=== PATIENT | male | born 1970 | race Caucasian/White ===

== ENCOUNTER 2024-10-28 13:47 | Outpatient (OUT) | payer OTHER, SELFPAY ==
--- NOTE | 2024-10-27 16:00 | VEINCLINIC_ITS ---
Vital Signs 10/28/24 14:22 Height 6 ft 1 in Weight 81.647 kg BMI 23.7 BP 120/58 BP Location Left Brachial BP Position Sitting BP Cuff Size Adult BP Source Manual Cuff Respiration 16 Pulse 62 Pulse Source Monitor Pulse Oximetry (%) 99 Oxygen Delivery Method Room Air Comment The patient's blood pressure is elevated. Varicose Veins Patient is a 53year in this day as a referral from Dr. Jacinto, patient's PCP with c/o bilateral leg pain and edema left leg greater than right. Patient has worn bilateral leg knee high compression stockings for approximately 10 years. Patient rates pain at a 3 on a scale of 1-10. Patient has family history of varicose vein disease in paternal grandmother. Patient has no history of varicose vein treatment nor any history of DVT's Ramakrishna Anaya MD personally performed the services described in this documentation, as scribed by Markos Sharp RN in my presence and it is both accurate and complete. IMarkos RN, am scribing for, and in the presence of, Dr. Ramakrishna Damon and in the presence of the patient. . thigh: bilateral (symptoms left leg > right leg), knee: bilateral, calf: bilateral, ankle: bilateral and nuñez: bilateral aching and cramping 3 10 years Worsened in recent months: Yes standing and sitting elevating extremities, compression stockings and exercise Reports muscle spasms of leg, limb pain and leg edema History of lower extremity trauma: No Superficial thrombophlebitis: No Family history of varicose veins: yes Has patient had previous lower extremity venous surgery: No Patient has previously received the following treatment(s) for lower extremity varicose veins: Reports none Does patient have a history of : not applicable Has patient had lower extremity venous scan with relux testing: No Support hose used: Yes Problems walking or doing physical activity: Yes How does it affect you: pain interupts patient's sleep and awakens patient at night Do you walk much: Yes Do you stand much: Yes Review of Systems ROS Narrative Ramakrishna Anaya MD personally performed the services described in this documentation, as scribed by Markos Sharp RN in my presence and it is both accurate and complete. IMarkos RN, am scribing for, and in the presence of, Dr. Ramakrishna Damon and in the presence of the patient. Status of ROS 10 or more systems reviewed and unremark able except as noted in history and below Cardiovascular Reports: edema Integumentary/Breast Reports: skin pain PFSH PFSH Medical History (Updated 10/28/24 @ 14:30 by Markos Sharp) Hypercholesteremia ?E78.00 - Pure hypercholesterolemia, unspecified (ICD-10) Varicose veins of bilateral lower extremities with pain ?I83.813 - Varicose veins of bilateral lower extremities with pain (ICD-10) Surgical History (Updated 10/28/24 @ 14:30 by Markos Sharp) H/O hernia repair ?Z98.890 - Other specified postprocedural states (ICD-10) ?Z87.19 - Personal history of other diseases of the digestive system (ICD-10) Family History (Updated 10/28/24 @ 14:32 by Markos Sharp) Other Family history of COPD (chronic obstructive pulmonary disease) Pain due to varicose veins of both lower extremities Social History (Updated 10/28/24 @ 14:32 by Markos Sharp) Within the past year, how often did you have a drink containing alcohol: monthly or less Smoking status: Never smoker Non-prescribed substance use: denies use Meds Home Medications and Allergies Home Medications ?Medication ?Instructions ?Recorded ?Confirmed ?Type atorvastatin 10 mg tablet 10 mg PO DAILY 10/28/24 10/28/24 History Allergies Allergy/AdvReac Type Severity Reaction Status Date / Time No Known Drug Allergies Allergy Verified 10/28/24 14:32 Exam Narrative Exam Narrative: Ramakrishna Anaya MD personally performed the services described in this documentation, as scribed by Markos Sharp RN in my presence and it is both accurate and complete. Markos Anaya RN, am scribing for, and in the presence of, Dr. Ramakrishna Damon and in the presence of the patient. Constitutional Documenting provider has reviewed patient's vital signs: yes Common normals: oriented x3 Cardio Peripheral pulses: posterior tibial pulses present and dorsalis pedis pulses present Extremity Common normals: normal capillary refill General: calf tenderness and edema Right lower extremity: lower leg Right lower leg: inspection and palpation Left lower extremity: lower leg Left lower leg: inspection and palpation Neuro Common normals: oriented x3 Results Additional Findings Additional findings: Bilateral leg reflux u/s reveals severe bilateral leg great saphenous and moder ate bilateral leg small saphenous venous insufficiency along with bilateral leg incompetent perforforating veins, and lastly bilateral leg branch saphenous truncal tributary varicosities. Ramakrishna Anaya MD personally performed the services described in this documentation, as scribed by Markos Sharp RN in my presence and it is both accurate and complete. I, Markos Sharp RN, am scribing for, and in the presence of, Dr. Ramakrishna Damon and in the presence of the patient. Assessment and Plan Assessment and Plan (1) Varicose veins of bilateral lower extremities with pain: Plan Plan is for patient to return for EVLT of bilateral leg EVLT's left leg before right. Once EVLT's are complete, move forward with microfoam chemical ablation bilateral leg branch saphenous varicosities. Ramakrishna Anaya MD personally performed the services described in this documentation, as scribed by Markos Sharp RN in my presence and it is both accurate and complete. IMarkos RN, am scribing for, and in the presence of, Dr. Ramakrishna Damon and in the presence of the patient.
--- NOTE | 2024-10-27 16:02 | P.DS_ITS ---
Discharge Plan Discharge Disposition: Home, Self-Care Outpatient Diagnostics: VC Endovenous Ablation 1VeinLT (Routine) Timeframe: 2 Weeks Facility: [facility] - Location: Vein Center Ordered By: Ramakrishna Damon Plan of Treatment: EVLT of left GSV Patient Instructions: Endovenous Ablation (GEN) Print Language: Yakut Discharge Date/Time: 10/28/24 15:58
--- NOTE | 2024-10-28 13:52 | VEIN_ITS ---
Patient Name: AFSHAN AZAR MR#: [id number] : 1970 Exam Date: 10/28/2024 Ordering Doctor: DR RAMAKRISHNA DAMON M.D. RADIOLOGY REPORT PROCEDURE: VC EXT VENOUS REFLUX JONO LMTD COMPARISON: None. INDICATIONS: I83.813 TECHNIQUE: Duplex imaging of the lower extremity to assess the deep and superficial venous system for the presence of deep or superficial venous incompetence and to document the location and severity of disease. The study includes evaluation of the great saphenous vein (GSV), anterior accessory saphenous vein (AASV) and small saphenous vein (SSV). Patient scanned in reverse Trendelenburg and standing. FINDINGS: RIGHT LOWER EXTREMITY: Saphenofemoral Junction Reflux: Yes 7.7mm 3.8 sec GSV: Diam (mm) Reflux/ Time (sec) Proximal Thigh 5.6 Yes 3.3 Mid Thigh 4.3 No Distal Thigh 3.3 No Prox Calf 3.1 Yes 0.8 Mid Calf 2.9 Yes 0.5 Saphenopopliteal Junction Reflux: 5.7mm Yes 0.6 SSV: Proximal Calf 3.9 Yes 0.5 Mid Calf 3.1 No AASV: Not present Thrombi: No acute or chronic thrombus visualized Compressibility: Normal Flow: Normal Preforator: Dist/med calf 3.6mm with 0.6s reflux. Tech Note: Incompetent GSV. GSV is extrafacial from distal thigh to prox calf. Patent varicose vein prox/med calf 4.0mm with 0.7s reflux. Patent varicose vein mid/med thigh 2.8mm with 0.7s reflux. LEFT LOWER EXTREMITY: Saphenofemoral Junction Reflux: Yes 10.8 mm 3.9 sec GSV: Diam (mm) Reflux/Time (sec) Proximal Thigh 8.1 Yes 3.2 Mid Thigh 6.6 Yes 3.7 Distal Thigh 2.4 Yes 2.0 Prox Calf 2.8 Yes 3.8 Mid Calf 2.4 No Saphenopopliteal Junction Relux: 1.9 mm Yes 0.9 SSV: Proximal Calf 1.5 No Mid Calf 1.5 Yes 1.0 AASV: Proximal Thigh 3.1 No Mid Thigh 3.6 No Distal Thigh Thrombi: No acute or chronic thrombus visualized Compressibility: Normal Flow: Normal Undertaker Assistant: Dist/med calf 3.3mm with 1.1s reflux. Mid/med calf 4.6mm with 1.0s reflux. Tech Note: Incompetent GSV. Patent varicose vein off of GSV at prox/med calf 10.8mm with 3.3s reflux. Patent varicose vein off of GSV at mid/med thigh 8.1mm with 2.4s reflux. CONCLUSION: 1. Severe bilateral great saphenous vein venous insufficiency with dilatation and saphenofemoral junction reflux 2. Mild right small saphenous vein reflux with borderline dilatation 3. Bilateral incompetent perforating 4. Bilateral incompetent varicose veins Dictated by: Ramakrishna Damon MD on 10/28/2024 at 15:04 Approved by: Ramakrishna Damon MD on 10/28/2024 at 15:06
--- NOTE | 2024-10-28 13:52 | VEIN_ITS ---
Patient Name: AFSHAN AZAR MR#: [id number] : 1970 Exam Date: 10/28/2024 Ordering Doctor: DR RAMAKRISHNA DAMON M.D. RADIOLOGY REPORT PROCEDURE: [facility] - OFFICE VISIT INITIAL COMPARISON: None. PROGRESS NOTES: 53-year-old male who is referred by Dr. Jimmy Jacinto. The patient presents with a 10 year history of lower extremity pain swelling and varicose veins, significantly increased in the past several years. The patient rates the pain as a 3 on a scale of 1-10 describing the pain as a dull ache. 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 The patient's symptoms are partially relieved by rest, leg elevation and for compression stockings which she has worn for approximately 10 years. The patient denies any signs and symptoms to suggest arterial ischemia. The patient describes a family history significant for varicose veins, COPD. The patient drinks alcohol monthly or less. The patient has never smoked. No substance abuse. No history of deep venous thrombus or pulmonary embolus. Past medical history significant for hypercholesterolemia varicose veins. Past surgical history significant for hernia repair. The patient is on atorvastatin. See separate history and physical for medication list. No prior treatment for varicose or spider veins. Nursing notes were reviewed. After history and physical exam I discussed at length the pathophysiology of venous hypertension and possible treatments, therapies and strategies available. We discussed at length the importance of elevating the lower extremities above the level of the heart, increased physical activity and compression stocking use. We discussed alternatives including conservative treatment with compression stockings. We discussed surgical interventions of ligation stripping and phlebectomy. We discussed intravenous laser ablation, micro foam chemical ablation and injection sclerotherapy at length. Risks benefits alternatives were discussed. The patient's questions were answered Ultrasound venous reflux study performed the same day was discussed at length with the patient. The report demonstrates severe bilateral great saphenous vein venous insufficiency. Mild right small saphenous vein venous insufficiency. Bilateral incompetent perforating veins her bilateral incompetent varicose veins. PHYSICAL EXAM: The right leg demonstrates a few scattered varicose veins. No subcutaneous edema, skin discoloration or active ulceration The left leg demonstrates multiple large varicose veins. Mild subcutaneous edema below the knee. No skin discoloration or active ulceration Both thighs, legs and feet were symmetrically warm to the touch. Good posterior tibial and dorsalis pedis pulses were present bilaterally. VEIN/VC Facility EST Comprehensive IMPRESSION: 1. Severe bilateral great saphenous vein venous insufficiency with dilatation and saphenofemoral junction reflux 2. Bilateral incompetent lower extremity varicose veins, left greater than right 3. Mild left lower extremity subcutaneous edema 4. No definite flow significant arterial disease 5. CEAP: C3, Ep, Asp, Pr PLAN: 1. Endovenous laser ablation of the left great saphenous vein followed by the right great saphenous vein 2. Micro foam chemical ablation incompetent varicose veins 3. Long-term use of bilateral near thigh-high 20-30 mm compression stockings 4. Continued physical activity for symptomatic relief Nurse notes, history and physical were reviewed and confirmed, see attached forms. The nurse was present throughout the physical exam and consultation Dictated by: Ramakrishna Damon MD on 10/28/2024 at 15:23 Approved by: Ramakrishna Damon MD on 10/28/2024 at 15:36
[2024-10-28 14:22] VITALS: BP 120/58; PULSE 62; O2SAT 99; BMI 23.7
== END 2024-10-28 15:58 | disposition home or self-care (01) ==
LOC: VC 13:47
PROVIDERS: PCP Internal Medicine; Visit Provider Radiology Diagnostic Radiology
DX: I83.813 Varicose veins of bilateral lower extremities with pain (principal)
CPT/HCPCS: 93970; G0463

== ENCOUNTER 2024-12-07 13:50 | Outpatient (OUT) | payer OTHER, SELFPAY ==
--- NOTE | 2024-12-06 09:51 | V.VEINS.HP ---
Vital Signs 12/07/24 14:03 BP 108/54 BP Location Left Brachial BP Position Sitting BP Cuff Size Large Adult BP Source Manual Cuff Respiration 16 Pulse 79 Pulse Source Monitor Pulse Oximetry (%) 98 Oxygen Delivery Method Room Air Varicose Veins Patient in this day for EVLT of left GSV Jose Anaya MD personally performed the services described in this documentation, as scribed by Markos Sharp RN in my presence and it is both accurate and complete. Markos Anaya RN, am scribing for, and in the presence of, Dr. Jose Amaro and in the presence of the patient. . thigh: bilateral (symptoms left leg > right leg), knee: bilateral, calf: bilateral, ankle: bilateral and nuñez: bilateral aching and cramping 3 10 years Worsened in recent months: Yes standing and sitting elevating extremities, compression stockings and exercise Reports muscle spasms of leg, limb pain and leg edema History of lower extremity trauma: No Superficial thrombophlebitis: No Family history of varicose veins: yes Has patient had previous lower extremity venous surgery: No Patient has previously received the following treatment(s) for lower extremity varicose veins: Reports none Does patient have a history of : not applicable Has patient had lower extremity venous scan with relux testing: No Support hose used: Yes Problems walking or doing physical activity: Yes How does it affect you: pain interupts patient's sleep and awakens patient at night Do you walk much: Yes Do you stand much: Yes Review of Systems ROS Narrative Jose Anaya MD personally performed the services described in this documentation, as scribed by Markos Sharp RN in my presence and it is both accurate and complete. Markos Anaya RN, am scribing for, and in the presence of, Dr. Jose Amaro and in the presence of the patient. Status of ROS 10 or more systems reviewed and unremarkable except as noted in history and below Cardiovascular Reports: edema Integumentary/Breast Reports: skin pain PFSH [facility] Medical History (Updated 12/06/24 @ 10:04 by Markos Sharp) Superficial thrombophlebitis of left leg ?I80.02 - Phlebitis and thrombophlebitis of superficial vessels of left lower extremity (ICD-10) Hypercholesteremia ?E78.00 - Pure hypercholesterolemia, unspecified (ICD-10) Varicose veins of bilateral lower extremities with pain ?I83.813 - Varicose veins of bilateral lower extremities with pain (ICD-10) Surgical History (Updated 12/07/24 @ 14:24 by Markos Sharp) Status post laser ablation of incompetent vein ?Z98.890 - Other specified postprocedural states (ICD-10) H/O hernia repair ?Z98.890 - Other specified postprocedural states (ICD-10) ?Z87.19 - Personal history of other diseases of the digestive system (ICD-10) Family History (Updated 10/28/24 @ 14:32 by Markos Sharp) Other Family history of COPD (chronic obstructive pulmonary disease) Pain due to varicose veins of both lower extremities Social History (Updated 10/28/24 @ 14:32 by Markos Sharp) Within the past year, how often did you have a drink containing alcohol: monthly or less Smoking status: Never smoker Non-prescribed substance use: denies use Meds Home Medications and Allergies Home Medications ?Medication ?Instructions ?Recorded ?Confirmed ?Type atorvastatin 10 mg tablet 10 mg PO DAILY 10/28/24 10/28/24 History Allergies Allergy/AdvReac Type Severity Reaction Status Date / Time No Known Drug Allergies Allergy Verified 10/28/24 14:32 Exam Narrative Exam Narrative: Jose Anaya MD personally performed the services described in this documentation, as scribed by Markos Sharp RN in my presence and it is both accurate and complete. Markos Anaya RN, am scribing for, and in the presence of, Dr. Jose Amaro and in the presence of the patient. Constitutional Documenting provider has reviewed patient's vital signs: yes Common normals: oriented x3 Cardio Peripheral pulses: posterior tibial pulses present and dorsalis pedis pulses present Extremity Common normals: normal capillary refill General: calf tenderness and edema Right lower extremity: lower leg Right lower leg: inspection and palpation Left lower extremity: lower leg Left lower leg: inspection and palpation Neuro Common normals: oriented x3 Assessment and Plan Assessment and Plan (1) Varicose veins of bilateral lower extremities with pain: Plan f/u evaluation with physician along with left leg limited u/s Jose Anaya MD personally performed the services described in this documentation, as scribed by Markos Sharp RN in my presence and it is both accurate and complete. I, Markos Sharp RN, am scribing for, and in the presence of, Dr. Jose Amaro and in the presence of the patient. Procedures Procedure Instructions Procedures Plan of care: Risks and benefits of the procedure were discussed at length and informed written consent was obtained.? Time-out completed for verification of correct patient, procedure and site.? Staff present during time-out: Markos Sharp RN,? Jose Amaro MD, [facility],[place]. Time Out Time_1430 Patient prepped and procedure performed in usual sterile fashion. Risk of injury related to use of Diode laser and/or laser devices__CR___ ? Serial number of laser used :? [id number] Control panel self test performed, electrical cords in good condition, floor is dry, basin of water available, fire extinguisher in close proximity_CR__ Polycarbonate goggles available and Laser warning signs outside of doors___CR__ Eye protection provided to patient and staff in room_CR___ Use of laser retardant drapes and dull blackened instruments as directed__CR___ Use of nonflammable prep solutions and use of saline soaked sponges to protect tissues as indicated _CR___ Length __32 cm Laser operated by __Dr. Damon Physician verbal confirmation laser locked in place__CR__ Laser start time (date and time) _12/06/2024@_1445 Laser stop time(date and time) __12/06/2024@_1449 Ramos _8.0___ Average laser use __1697 Joules Average laser use__212 seconds Pulse continuous ___CR_? Pulse intermittent ___ Amount of Tumescent used _175cc Evaluated patient for signs and symptoms of electrical injury __CR___ ? Skin clear at insertion site __CR___ Patient tolerated procedure well.? Left leg Coban dressing applied to access site.? Applied Left thigh high leg compression stocking. Will return on 12/14/2024 for Left leg limited venous ultrasound and exam. IRamakrishna MD personally performed the services described in this documentation, as scribed by Markos Sharp RN in my presence and it is both accurate and complete. I, Markos Sharp RN, am scribing for, and in the presence of, Dr. Ramakrishna Damon and in the presence of the patient.
--- NOTE | 2024-12-06 10:02 | P.DS_ITS ---
Discharge Plan Discharge Disposition: Home, Self-Care Outpatient Diagnostics: VC Facility EST LMTD (Routine) Timeframe: 2 Weeks Facility: [facility] - Location: Vein Center Ordered By: Ramakrishna Damon VC EXT Venous LT Limited (Routine) Timeframe: 2 Weeks Facility: [facility] - Location: Vein Center Ordered By: Ramakrishna Damon Follow Up Appointments: 12/14/2024 Plan of Treatment: f/u evaluation with physician along with left leg limited u/s Patient Instructions: Endovenous Ablation (DC) Print Language: Persian Discharge Date/Time: 12/07/24 14:24
--- NOTE | 2024-12-07 13:53 | VEIN_ITS ---
[address] [address] Patient Name: AFSHAN AZAR MRN: [id number] date: 1970 Sex: M Assigned Patient Location: Current Patient Location: Accession/Order Number: [id number] Exam Date: 12/07/2024 14:00 Report Date: 12/07/2024 14:55 At the request of: KINSEY JJ Procedure: VC Endovenous Ablation 1VeinLT EXAMINATION: VC Endovenous Ablation 1VeinLT HISTORY: I83.813 - Varicose veins of bilateral lower extremities w... The risks and benefits of the procedure had been previously discussed, and were rediscussed at length. Informed written consent was obtained. Markos Sharp RN and Carmela Saavedra RDMS, RVT assisted. Time out procedure was performed. The left lower extremity was prepared and draped in the usual sterile fashion to allow knee flexion in the sterile field. Duplex ultrasound probe was draped in a sterile cover, sterile transmission gel was used. Venous mapping was performed with the areas of dilation and large tributaries marked. The total length was 32 cm from the entry distal thigh to 3 cm below the Saphenofemoral junction. The diameter of the left great saphenous vein ranged from 8.1 mm. A 30 gauge needle and 1% buffered lidocaine was used to anesthetize the entry site. A 4 mm incision was made with a scalpel and the saphenous vein was entered percutaneously under direct ultrasound guidance with a micropuncture set, a single stick was successful in gaining access. A micro-guide wire was inserted and the needle removed. A micro-set including a dilator was inserted over the microwire and the needle and dilator were removed. A guide wire was inserted through the micro-set and guided through the saphenous vein to the saphenofemoral junction. The dilator was removed and an introducer sheath was inserted over the wire until the end of the sheath entered the saphenofemoral junction. The dilator and wire were removed and the 600 micron fiber was introduced and placed and positioned so that it extended beyond the sheath and was 3 cm distal to the saphenofemoral or saphenopopliteal junction. Final position of the fiber was determined by ultrasound guidance and duplex imaging. Tumescent anesthetic was delivered by ultrasound guidance. 175 cc of fluid was delivered along the entire course of the saphenous vein. The solution consisted of 1000 cc of normal saline with 40 mL of 1% lidocaine and 20 mL of sodium bicarbonate. A final positioning check was made. The energy source was turned on by means of the foot pedal and the fiber and sheath were withdrawn. The total number of Joules delivered was 1697. The laser was active for 212 seconds under continuous pulse, average laser use of 8 J. Laser start time: 2:45 PM Laser stop time: 2:49 PM Date: 12/07/2024. A duplex ultrasound revealed compressibility and flow at the saphenofemoral junction immediately after the procedure. Hemostasis at the access site was achieved. The skin incision of the saphenous vein was closed with a 4 x 4. A compression stocking was applied. Postop instructions were given. A follow up appointment was recommended and scheduled. The patient tolerated the procedure well. Electronically authenticated by: SAMANTHA LECHUGA Date: 12/07/2024 14:55
[2024-12-07 14:03] VITALS: BP 108/54; PULSE 79; O2SAT 98
[2024-12-07] MEDS: 0.9 % SODIUM CHLORIDE 500 ML, LIDOCAINE HCL 20 ML, SODIUM BICARBONATE 10 MEQ INJ (14:20)
[2024-12-07] MEDS: LIDOCAINE HCL 1% 100 MG/10 ML MDV INJ (14:20)
== END 2024-12-07 14:24 | disposition home or self-care (01) ==
LOC: VC 13:50
PROVIDERS: PCP Radiology Diagnostic Radiology; Visit Provider Radiology Diagnostic Radiology
DX: I83.813 Varicose veins of bilateral lower extremities with pain (principal)
CPT/HCPCS: 36478

== ENCOUNTER 2024-12-14 14:58 | Outpatient (OUT) | payer OTHER, SELFPAY ==
--- NOTE | 2024-12-13 14:40 | V.VEINS.HP ---
Varicose Veins Patient in this day for follow up ultrasound post EVLT of left GSV Ramakrishna Anaya MD personally performed the services described in this documentation, as scribed by Carmela Saavedra RVT, RDMS in my presence and it is both accurate and complete. Carmela Anaya RVT, RDMS, am scribing for, and in the presence of, Dr. Ramakrishna Damon and in the presence of the patient. . thigh: bilateral (symptoms left leg > right leg), knee: bilateral, calf: bilateral, ankle: bilateral and nuñez: bilateral aching and cramping 3 10 years Worsened in recent months: Yes standing and sitting elevating extremities, compression stockings and exercise Reports muscle spasms of leg, limb pain and leg edema History of lower extremity trauma: No Superficial thrombophlebitis: No Family history of varicose veins: yes Has patient had previous lower extremity venous surgery: No Patient has previously received the following treatment(s) for lower extremity varicose veins: Reports none Does patient have a history of : not applicable Has patient had lower extremity venous scan with relux testing: No Support hose used: Yes Problems walking or doing physical activity: Yes How does it affect you: pain interupts patient's sleep and awakens patient at night Do you walk much: Yes Do you stand much: Yes Review of Systems ROS Narrative Ramakrishna Anaya MD personally performed the services described in this documentation, as scribed by Carmela Saavedra RVT, RDMS in my presence and it is both accurate and complete. ICarmela RVT, RDMS, am scribing for, and in the presence of, Dr. Ramakrishna Damon and in the presence of the patient. Status of ROS 10 or more systems reviewed and unremarkable except as noted in history and below Cardiovascular Reports: edema Integumentary/Breast Reports: skin pain [facility] Medical History (Updated 12/06/24 @ 10:04 by Markos Sharp) Superficial thrombophlebitis of left leg ?I80.02 - Phlebitis and thrombophlebitis of superficial vessels of left lower extremity (ICD-10) Hypercholesteremia ?E78.00 - Pure hypercholesterolemia, unspecified (ICD-10) Varicose veins of bilateral lower extremities with pain ?I83.813 - Varicose veins of bilateral lower extremities with pain (ICD-10) Surgical History (Updated 12/07/24 @ 14:24 by Markos Sharp) Status post laser ablation of incompetent vein ?Z98.890 - Other specified postprocedural states (ICD-10) H/O hernia repair ?Z98.890 - Other specified postprocedural states (ICD-10) ?Z87.19 - Personal history of other diseases of the digestive system (ICD-10) Family History (Updated 10/28/24 @ 14:32 by Markos Sharp) Other Family history of COPD (chronic obstructive pulmonary disease) Pain due to varicose veins of both lower extremities Social History (Updated 10/28/24 @ 14:32 by Markos Sharp) Within the past year, how often did you have a drink containing alcohol: monthly or less Smoking status: Never smoker Non-prescribed substance use: denies use Meds Home Medications and Allergies Home Medications ?Medication ?Instructions ?Recorded ?Confirmed ?Type atorvastatin 10 mg tablet 10 mg PO DAILY 10/28/24 10/28/24 History Allergies Allergy/AdvReac Type Severity Reaction Status Date / Time No Known Drug Allergies Allergy Verified 10/28/24 14:32 Exam Narrative Exam Narrative: Ramakrishna Anaya MD personally performed the services described in this documentation, as scribed by Carmela Saavedra RVT, RDMS in my presence and it is both accurate and complete. Carmela Anaya RVT, RDMS, am scribing for, and in the presence of, Dr. Ramakrishna Damon and in the presence of the patient. Constitutional Documenting provider has reviewed patient's vital signs: yes Common normals: oriented x3 Cardio Peripheral pulses: posterior tibial pulses present and dorsalis pedis pulses present Extremity Common normals: normal capillary refill General: calf tenderness and edema Right lower extremity: lower leg Right lower leg: inspection and palpation Left lower extremity: lower leg Left lower leg: inspection and palpation Neuro Common normals: oriented x3 Results Imaging Venous US: Radiologist's impression: The ultrasound demonstrates Heat induced thrombus visualized 1.8cm from the SFJ. The heat induced thrombus extends from groin to distal thigh. Assessment and Plan Assessment and Plan (1) Superficial thrombophlebitis of left leg: Plan Patient in today for follow up ultrasound of lower extremity following treatment of EVLT of left leg GSV completed on 12/07/24. Ramakrishna Anaya MD personally performed the services described in this documentation, as scribed by Carmela Saavedra RVT, RDMS in my presence and it is both accurate and complete. I, Carmela Saavedra RVT, RDMS, am scribing for, and in the presence of, Dr. Ramakrishna Damon and in the presence of the patient.
--- NOTE | 2024-12-13 14:42 | P.DS_ITS ---
Discharge Plan Discharge Disposition: Home, Self-Care Outpatient Diagnostics: VC Endovenous Ablation 1VeinRT (Routine) Timeframe: 2 Weeks Facility: [facility] - Location: [facility] Ordered By: Ramakrishna Damon Follow Up Appointments: Patient wants and plans to continue to get treatment. Plan of Treatment: EVLT of right leg GSV Print Language: Italian Discharge Date/Time: 12/14/24 15:21
--- NOTE | 2024-12-14 15:03 | VEIN_ITS ---
Patient Name: AFSHAN AZAR MR#: [id number] : 1970 Exam Date: 12/14/2024 Ordering Doctor: DR RAMAKRISHNA DAMON M.D. RADIOLOGY REPORT PROCEDURE: VC EXT VENOUS LT LIMITED COMPARISON: None. INDICATIONS: I80.02 - Phlebitis and thrombophlebitis of superficial ve... TECHNIQUE: Lower extremity hubbard scale and Duplex Doppler evaluation of the deep venous system from the inguinal ligament through the calf veins. FINDINGS: REGION: Left lower extremity. THROMBI: Negative for DVT. Heat induced thrombus visualized 1.8cm from the SFJ. The heat induced thrombus extends from groin to distal thigh. COMPRESSIBILITY: Non-compressible segments corresponding to thrombus FLOW: Areas of no flow corresponding to thrombus CONCLUSION: Post ablation occlusion of the left great saphenous vein with heat induced thrombus 1.8 cm from the saphenofemoral junction Dictated by: Ramakrishna Damon MD on 12/14/2024 at 15:19 Approved by: Ramakrishna Damon MD on 12/14/2024 at 15:21
--- NOTE | 2024-12-14 15:03 | VEIN_ITS ---
Patient Name: AFSHAN AZAR MR#: [id number] : 1970 Exam Date: 12/14/2024 Ordering Doctor: DR RAMAKRISHNA DAMON M.D. RADIOLOGY REPORT PROCEDURE: VC FACILITY EST [facility] - OFFICE VISIT FOLLOW UP COMPARISON: None. PROGRESS NOTES: The patient reports no significant problems following intravenous laser ablation of the left great saphenous vein. The patient did wear his compression stockings. The patient did not oral analgesics. Physical exam demonstrates minimal bruising along the medial distal thigh. The incision is healed. No erythema or warmth to suggest cellulitis or thrombophlebitis. The thrombosed left great saphenous vein can be palpated. Review of the ultrasound performed the same day demonstrates occlusive thrombus extending throughout the treated left great saphenous vein with heat induced thrombus 1.8 cm from the saphenofemoral junction. The patient expressed a desire to proceed with treatment of incompetent right great saphenous vein. VEIN/VC Facility EST LMTD IMPRESSION: 1. Successful ablation of the left great saphenous vein 2. Persistent incompetent right great saphenous vein. PLAN: Intravenous laser ablation right great saphenous vein Nurse notes, history and physical were reviewed and confirmed, see attached forms. The nurse was present throughout the physical exam and consultation Dictated by: Ramakrishna Damon MD on 12/14/2024 at 15:34 Approved by: Ramakrishna Damon MD on 12/14/2024 at 15:38
--- OUTSIDE RECORDS SUMMARY | 2024-12-14 15:22 | XMS_ITS | CCD ---
Author Organization [facility] CliniSyor Care Team Providers Care Operations Management Professionals Name Role Phone DR JIMMY DAVIES Attending Unavailable SAMSON, DR MANDEL Consulting Unavailable SAMSON, DR MANDEL Admitting Unavailable Jimmy Davies Unavailable Asashannon, Imshannon Unavailable MD Samantha Maciel Attending Provider [phone] DO Jimmy Davies Primary Care Provider Jimmy Davies Primary Care Unavailable AsaadSamantha Attending Unavailable Asaad Imshannon Admitting Unavailable Allergies Allergy Classification Reported Allergen(s) Allergy Type Date of Onset Reaction(s) Facility (1 source) patient allergy list reviewed by nurse or physicia Propensity to adverse reactions 4 Comment:[employer] Other Medications Current Medications Medication Drug Class(es) Dates Sig (Normalized) Sig (Original) [id number] 200 actuat albuterol 0.09 mg/actuat metered dose inhaler (6 sources) beta2-Adrenergic Agonist Start: 12-25-2020 take 2 puff(s) by inhalation every four hours as needed Albuterol Sulfate HFA 108 (90 Base) MCG/ACT 2 puffs as needed Inhalation every 4 hrs for 30 days Dec, Active Start: 12-25-2020 take 2 puff(s) by in halation every four hours as needed Albuterol Sulfate HFA 108 (90 Base) MCG/ACT 2 puffs as needed Inhalation every 4 hrs for 30 days Dec, Not-Taking atorvastatin 40 mg oral tablet (3 sources) HMG-CoA Reductase Inhibitor Start: 09-02-2024 End: 09-02-2024 take 1 tablet by mouth once daily Atorvastatin 40 mg tablet Active 40 MG PO Daily 90 90 September 02, 2024 2:16pm Start: 08-26-2023 take 1 tablet by shakira th every twenty-four hours Atorvastatin Calcium 40 MG 1 tablet Orally Once a day for 30 days Aug, Active meloxicam 15 mg oral tablet (6 sources) Nonsteroidal Anti-inflammatory Drug Start: 03-13-2023 take 1 tablet by mouth once daily Meloxicam 15 MG 1 tablet Orally Once a day w/ food Feb, Active Completed/Discontinued Medications Medication Drug Class(es) Dates Sig (Normalized) Sig (Original) methylPREDNISolone 4 mg oral tablet (6 sources) Corticosteroid Start: 12-25-2020 Medrol 4 MG as directed Orally for 6 days Dec, Not-Taking polyethylene glycol 3350 [id number] mg / potassium chloride 2970 mg / sodium bicarbonate 6740 mg / sodium chloride 5860 mg / sodium sulfate 01762 mg powder for oral solution (3 sources) Osmotic Laxative Start: 06-03-2023 take 236 g by mouth once daily Golytely 236 GM as directed Orally once daily for 1 days May, Not-Taking predniSONE 20 mg oral tablet (5 sources) Start: 05-07-2023 take 1 tablet by mouth twice daily predniSONE 20 MG 1 tablet Orally twice daily w/ food for 5 days Hold Meloxicam while taking Prednisone Apr, Not-Taking Problems Active Problems Problem Classification Problem Date Documented Date Episodic/Chronic Disorders of lipid metabolism (11 sources) Hypercholesterolemia; Translations: [Pure hypercholesterolemia, unspecified] Chronic Joint disorders and dislocations; trauma-related (2 sources) Patellofemoral stress syndrome; Translations: [Patellofemoral disorders, right knee] Chronic Other nutritional; endocrine; and metabolic disorders (2 sources) Overweight; Translations: [Overweight] Episodic Other screening for suspected conditions (not mental disorders or infectious disease) (4 sources) Encounter for screening for malignant neoplasm of colon; Translations: [Encounter for screening for malignant neoplasm of prostate] Episodic Comment on above: PSA: 1. - 06/2024 Otitis media and related conditions (2 sources) Unspecified Eustachian tube disorder, bilateral Episodic Sprains and strains (3 sources) Strain of unspecified muscle(s) and tendon(s) at lower leg level, right leg, initial encounter; Translations: [Strain of unspecified muscle(s) and tendon(s) at lower leg level, right leg, subsequent encounter] Episodic Unclassified (1 source) Encounter for screening for malignant neoplasm of colon; Translations: [Encounter for screening for malignant neoplasm of colon] Onset: 06-30-2023 Varicose veins of lower extremity (6 sources) Pain co-occurrent and due to varicose veins of left leg; Translations: [Varicose veins of left lower extremity with pain] Episodic Past or Other Problems Problem Classification Problem Date Documented Da te Episodic/Chronic Other connective tissue disease (2 sources) Pain in right foot; Translations: [Pain in right foot] Onset: 04-01-2014 Resolved: 10-29-2021 Episodic Results Test Name Value Interpretation Reference Range [facility] CBC AUTO DIFFon 07-04-2022 BASO # 0.0 103/ul Normal 0.0-0.1 [facility] Comment on above: Performed By: #### H FPFCBC #### [facility] [address] [place] [address] Dr. Macho Harrell Basophils/100 WBC (Bld) 0.7 % Normal 0.2-2.0 [facility] Comment on above: Performed By: #### H FPFCBC #### [facility] [address] [address] [address] Macho Harrell EO # 0.1 103/ul Normal 0.0-0.7 [facility] Comment on above: Performed By: #### H FPFCBC #### [facility] [address] [place] [address] Dr. Macho Harrell Eosinophils/100 WBC (Bld) 1.9 % Normal 0.9-7.0 [facility] Comment on above: Performed By: #### H FPFCBC #### [facility] [address] [address] [address] Macho Harrell Erythrocyte distribution width (RBC) [Ratio] 11.7 % Normal 11.0-15.0 [facility] Comment on above: Performed By: #### H FPFCBC #### [facility] [address] [place] [address] Dr. Macho Harrell Hematocrit (Bld) [Volume fraction] 46.1 % Normal 42.0-54.0 [facility] Comment on above: Performed By: #### H FPFCBC #### [facility] [address] [address] [address] Macho Harrell Hemoglobin (Bld) [Mass/Vol] 15.6 g/dL Normal 14.0-18.0 [facility] Comment on above: Performed By: #### H FPFCBC #### [facility] [address] [address] [address] Macho Harrell IG # 0.01 10e3/ul Normal 0.00-0.03 [facility] Comment on above: Performed By: #### H FPFCBC #### [facility] [address] [address] [address] Macho Harrell IG % 0.2 % Normal 0.0-0.5 [facility] Comment on above: Performed By: #### H FPFCBC #### [facility] [address] [place] [address] Dr. Macho Harrell LYMPH # 1.5 103/ul Normal 1.2-3.8 [facility] Comment on above: Performed By: #### H FPFCBC #### [facility] [address] [place] [address] Dr. Macho Harrell Lymphocytes/100 WBC (Bld) 33.7 % Normal 20.5-60.0 [facility] Comment on above: Performed By: #### H FPFCBC #### [facility] [address] [place] [address] Dr. Macho Harrell MCH (RBC) [Entitic mass] 29.8 pg Normal 25.9-34.0 [facility] Comment on above: Performed By: #### H FPFCBC #### [facility] [address] [place] [address] Dr. Macho Harrell MCHC (RBC) [Mass/Vol] 33.8 g/dL Normal 29.9-35.2 [facility] Comment on above: Performed By: #### H FPFCBC #### [facility] [address] [place] [address] Dr. Macho Harrell MCV (RBC) [Entitic vol] 88.1 fL Normal 80.0-94.0 [facility] Comment on above: Performed By: #### H FPFCBC #### [facility] [address] [address] [address] Macho Harrell MONO # 0.4 103/ul Normal 0.3-0.8 [facility] Comment on above: Performed By: #### H FPFCBC #### [facility] [address] [place] [address] Dr. Macho Harrell Monocytes/100 WBC (Bld) 8.1 % Normal 1.7-12.0 [facility] Comment on above: Performed By: #### H FPFCBC #### [facility] [address] [place] [address] Dr. Macho Harrell NEUT # 2.4 103/ul Normal 1.4-6.5 [facility] Comment on above: Performed By: #### H FPFCBC #### [facility] [address] [place] [address] Dr. Macho Harrell Neutrophils/100 WBC (Bld) 55.4 % Normal 43.0-75.0 [facility] Comment on above: Performed By: #### H FPFCBC #### [facility] [address] [place] [address] Dr. Macho Harrell Platelet mean volume (Bld) [Entitic vol] 12.0 fL Normal 9.5-13.5 [facility] Comment on above: Performed By: #### H FPFCBC #### [facility] [address] [place] [address] Dr. Macho Harrell PLT 169 103/ul Normal 150-450 [facility] Comment on above: Performed By: #### H FPFCBC #### [facility] [address] [place] [address] Dr. Macho Harrell RBC 5.23 106/ul Normal 4.70-6.10 [facility] Comment on above: Performed By: #### H FPFCBC #### [facility] [address] [place] [address] Dr. Macho Harrell WBC 4.3 103/ul Normal 4.0-11.0 [facility] Comment on above: Performed By: #### H FPFCBC #### [facility] [address] [address] [address] Macho Harrell [employer] PROFILE (MALE)on 07-04-2022 Albumin [Mass/Vol] 3.8 g/dL Normal 3.4-5.0 [facility] Comment on above: Performed By: #### H FPFM #### [facility] [address] [address] [address] Macho Harrell Albumin/Globulin [Mass ratio] 1.2 {ratio} Normal [facility] Comment on above: Performed By: #### H FPFM #### [facility] [address] [place] [address] Dr. Macho Harrell ALP [Catalytic activity/Vol] 91 U/L Normal 46-116 [facility] Comment on above: Performed By: #### H FPFM #### [facility] [address] [place] [address] Dr. Macho Harrell ALT [Catalytic activity/Vol] 23 U/L Normal 16-63 [facility] Comment on above: Performed By: #### H FPFM #### [facility] [address] [place] [address] Dr. Macho Harrell AST [Catalytic activity/Vol] 19 U/L Normal 15-37 [facility] Comment on above: Performed By: #### H FPFM #### [facility] [address] [place] [address] Dr. Macho Harrell Bilirubin [Mass/Vol] 0.6 mg/dL Normal 0.2-1.0 [facility] Comment on above: Performed By: #### H FPFM #### [facility] [address] [place] [address] Dr. Macho Harrell Calcium [Mass/Vol] 8.6 mg/dL Normal 8.5-10.1 [facility] Comment on above: Performed By: #### H FPFM #### [facility] [address] [place] [address] Dr. Macho Harrell Chloride [Moles/Vol] 103 mmol/L Normal 98-107 [facility] Comment on above: Performed By: #### H FPFM #### [facility] [address] [address] [address] Macho Harrell CHOL-HDL RATIO NORM SEE BELOW Normal [facility] Comment on above: Result Comment: 3.3 - 4.4 LOW RISK 4.4 - 7.1 AVERAGE RISK 7.1 - 11.0 MODERATE RISK >11.0 HIGH RISK Performed By: #### H FPFM #### [facility] [address] [address] [address] Macho Harrell Cholesterol [Mass/Vol] 246 mg/dL Critically high <=200 [facility] Comment on above: Performed By: #### H FPFM #### [facility] [address] [address] [address] Macho Harrell Cholesterol in HDL [Mass/Vol] 62 mg/dL Critically high 40-60 [facility] Comment on above: Performed By: #### H FPFM #### [facility] [address] [address] [address] Macho Harrell Cholesterol in LDL [Mass/Vol] 165.8 mg/dL Normal [facility] Comment on above: Performed By: #### H FPFM #### [facility] [address] [address] [address] Macho Harrell Cholesterol.total/C holesterol in HDL [Mass ratio] 4.0 {ratio} Normal [facility] Comment on above: Performed By: #### H FPFM #### [facility] [address] [address] [address] Macho Harrell CO2 [Moles/Vol] 30.5 mmol/L Normal 21.0-32.0 [facility] Comment on above: Performed By: #### H FPFM #### [facility] [address] [address] [address] Macho Harrell Creatinine [Mass/Vol] 0.95 mg/dL Normal 0.70-1.30 [facility] Comment on above: Performed By: #### H FPFM #### [facility] [address] [address] [address] Macho Harrell Globulin (S) [Mass/Vol] 3.2 g/dL Normal [facility] Comment on above: Performed By: #### H FPFM #### [facility] [address] [address] [address] Macho Harrell Glucose [Mass/Vol] 89 mg/dL Normal 74-106 [facility] Comment on above: Performed By: #### H FPFM #### [facility] [address] [address] [address] Macho Harrell HDL NORMAL > or = 60 mg/dl - LO W CARDIOVASCULAR RISK <40 mg/dl - HIGH CARDIOVASCULAR RISK Normal [facility] Comment on above: Performed By: #### H FPFM #### [facility] [address] [address] [address] Macho Harrell LDL CALC NORMAL SEE BELOW Normal [facility] Comment on above: Result Comment: <100 mg/dl OPTIMAL 100 - 129 mg/dl NEAR OR ABOVE OPTIMAL 130 - 159 mg/dl BORDERLINE HIGH 160 - 189 mg/dl HIGH >190 mg/dl VERY HIGH Performed By: #### H FPFM #### [facility] [address] [address] [address] Macho Harrell Potassium [Moles/Vol] 4.3 mmol/L Normal 3.5-5.1 [facility] Comment on above: Performed By: #### H FPFM #### [facility] [address] [address] [address] Macho Harrell Protein [Mass/Vol] 7.0 g/dL Normal 6.4-8.2 [facility] Comment on above: Performed By: #### H FPFM #### [facility] [address] [address] [address] Macho Harrell Sodium [Moles/Vol] 138 mmol/L Normal 136-145 [facility] Comment on above: Performed By: #### H FPFM #### [facility] [address] [address] [address] Macho Harrell Triglyceride [Mass/Vol] 91 mg/dL Normal <=150 [facility] Comment on above: Performed By: #### H FPFM #### [facility] [address] [address] [address] Macho Harrell TSH 1.802 uIU/mL Normal 0.358-3.740 [facility] Comment on above: Performed By: #### H FPFM #### [facility] [address] [address] [address] Macho Harrell Urea nitrogen [Mass/Vol] 15.0 mg/dL Normal 7.0-18.0 [facility] Comment on above: Performed By: #### H FPFM #### [facility] [address] [address] [address] Macho Harrell Urea nitrogen/Creatinine [Mass ratio] 15.8 mg/mg Normal [facility] Comment on above: Performed By: #### H FPFM #### [facility] [address] [address] [address] Macho Harrell VLDL CALC 18.2 mg/dL Normal [facility] Comment on above: Performed By: #### H FPFM #### [facility] [address] [address] [address] Macho Harrell Vital Signs Date Time Vital Sign Value Performing Clinician Facility 09-29-2024 16:06-0500 Body height 182.88 cm [facility] 09-29-2024 16:06-0500 Body mass index (BMI) [Ratio] 25.1 kg/m2 [facility] 09-29-2024 16:06-0500 Body weight 84.02 kg [facility] 09-29-2024 16:06-0500 Diastolic blood pressure 80 mm[Hg] [facility] 09-29-2024 16:06-0500 Heart rate 58 /min [facility] 09-29-2024 16:06-0500 Respiratory rate 12 /min [facility] 09-29-2024 16:06-0500 Systolic blood pressure 120 mm[Hg] [facility] 08-26-2023 15:30-0400 Body height 185.42 cm Jimmy Ball Other [employer] Other 08-26-2023 15:30-0400 Body mass index (BMI) [Ratio] 24.17 kg/m2 Jimmy Ball Other [employer] Other 08-26-2023 15:30-0400 Body weight 83.1 kg Jimmy Ball Other [employer] Other 08-26-2023 15:30-0400 Diastolic blood pressure 88 mm[Hg] Jimmy Ball Other [employer] Other 08-26-2023 15:30-0400 Respiratory rate 12 /min Jimmy Ball Other [place] [email or web address] Other 08-26-2023 15:30-0400 Systolic blood pressure 136 mm[Hg] Jimmy Ball Other [employer] Other 06-30-2023 11:39-0400 Diastolic blood pressure 80 mm[Hg] DO Jimmy Ball Work Phone: [facility] 06-30-2023 11:39-0400 Heart rate 55 /min DO Jimmy Ball Work Phone: [facility] 06-30-2023 11:39-0400 Respiratory rate 16 /min DO Jimmy Ball Work Phone: [facility] 06-30-2023 11:39-0400 SaO2% (BldA) [Mass fraction] 99 % DO Jimmy Ball Work Phone: [facility] 06-30-2023 11:39-0400 Systolic blood pressure 123 mm[Hg] DO Jimmy Ball Work Phone: [facility] 06-30-2023 08:55-0400 Body height 182.88 cm DO Jimmy Ball Work Phone: [facility] 06-30-2023 08:55-0400 Body temperature 98.1 [degF] DO Jimmy Ball Work Phone: [facility] 06-30-2023 08:55-0400 Body weight 81.64 kg DO Jimmy Ball Work Phone: [facility] 05-07-2023 15:45-0400 Body height 185.42 cm Jimmy Ball Other [employer] Other 05-07-2023 15:45-0400 Body mass index (BMI) [Ratio] 23.82 kg/m2 Jimmy Ball Other [employer] Other 05-07-2023 15:45-0400 Body weight 81.92 kg Jimmy Ball Other [employer] Other 05-07-2023 15:45-0400 Diastolic blood pressure 77 mm[Hg] Jimmy Ball Other [employer] Other 05-07-2023 15:45-0400 Respiratory rate 12 /min Jimmy Ball Other [employer] Other 05-07-2023 15:45-0400 Systolic blood pressure 122 mm[Hg] Jimmy Ball Other [employer] Other 03-13-2023 10:30-0400 Body height 185.42 cm Jimmy Ball Other [employer] Other 03-13-2023 10:30-0400 Body mass index (BMI) [Ratio] 24.06 kg/m2 Jimmy Ball Other [employer] Other 03-13-2023 10:30-0400 Body weight 82.74 kg Jimmy Ball Other [employer] Other 03-13-2023 10:30-0400 Diastolic blood pressure 84 mm[Hg] Jimmy Ball Other [employer] Other 03-13-2023 10:30-0400 Respiratory rate 12 /min Jimmy Davies Other [employer] Other 03-13-2023 10:30-0400 Systolic blood pressure 141 mm[Hg] Jimmy Davies Other [employer] Other Encounters Encounter Date Encounter Type Care Provider Facility Start: 09-29-2024 End: 09-29-2024 ambulatory [facility] Work Phone: Start: 09-29-2024 End: 09-29-2024 Encounter for general adult medical examination without abnormal findings [facility] Start: 09-29-2024 End: 09-29-2024 Patient encounter procedure [facility] Work Phone: Start: 09-28-2024 Patient encounter status [facility] Start: 08-26-2023 End: 08-26-2023 ambulatory Jimmy Davies Other [facility] [employer] Other Start: 08-26-2023 Encounter for genera l adult medical examination without abnormal findings Jimmy Davies [facility] Start: 08-26-2023 Periodic preventive med est patient 40-64yrs Jimmy Davies [facility] Start: 06-30-2023 Telephone encounter Jimmy Davies [facility] Start: 06-30-2023 End: 06-30-2023 ambulatory Jimmy Davies Facility:[facility] Start: 06-30-2023 End: 06-30-2023 Admission to same day surgery center DO Jimmy Davies Work Phone: [facility] Work Phone: Start: 06-30-2023 End: 06-30-2023 ambulatory DO Jimmy Davies Work Phone: [facility] Work Phone: Start: 06-02-2023 End: 06-02-2023 ambulatory Imad Asaad Other [facility] [employer] Other Start: 06-02-2023 Telephone encounter Samantha Maciel [facility] Start: 05-09-2023 End: 05-09-2023 ambulatory Jimmy Davies Other [employer] Other Start: 05-09-2023 Telephone encounter Jimmy Davies [facility] Start: 05-07-2023 End: 05-07-2023 ambulatory Jimmy Davies Other [employer] Other Start: 05-07-2023 Office outpatient vi sit 15 minutes Jimmy Davies [facility] Start: 03-13-2023 End: 03-13-2023 ambulatory Jimmy Davies Other [employer] Other Start: 03-13-2023 Office outpatient vi sit 15 minutes Jimmy Davies [facility] Start: 11-04-2022 Adult health examination Jimmy Davies Other [employer] Other Start: 07-04-2022 End: 07-05-[address] JIMMY DAVIES Facility:[facility] Procedures Date Procedure Procedure Detail Performing Clinician Start: 06-30-2023 Screening colonoscopy D O Jimmy Davies Work Phone: Start: 07-04-[address] VALENCIA [place] Comment on above: Performed By: #### H [facility] #### [facility] [address] [place] [address] Dr. Macho Harrell Depression screening Tomás Davies Other Plan of Treatment Date Care Activity Detail Author Start: 06-30-2023 [facility] Patient Education Hemorrhoids (DC) [facility] Work Phone: Immunizations Immunization Date Immunization Notes Care Provider Elham eller 12-03-2013 tetanus and diphther ia toxoids, adsorbed, preservative free, for adult use (5 Lf of tetanus toxoid and 2 Lf of diphtheria toxoid) Jimmy Davies Other [facility] Payers Date Payer Category Payer Self-pay 2023 Unknown [id number] [id number] 1961 Self-pay [id number] Unknown [id number] Unknown [id number] Social History Date Type Detail Facility Unknown if ever smoked [facility] [employer] Other Sex Assigned At Sex Assigned At Bir th [facility] [employer] Other Start: 06-30-2023 End: 06-30-2023 Tobacco smoking status NHIS Never smoked tobacco (finding) [facility] Start: 1970 Sex Assigned At Male F [facility] Start: 09-29-2024 Sex Male (finding) [facility] Goals Date Patient Goal Desired Activity /State Clinical Notes 03-13-2023 to 08-26-2023 Note Date & Type Note Facility 08-26-2023 Evaluation note Encounter Date Diagnosis Assessment Notes Aug, Wellness examination (ICD-10 - Z00.00) Healthy diet and exercise. Reviewed age-appropriate preventive testing recommended. Aug, Hypercholesterolemia (ICD-10 - E78.00) Instructed on diet and exercise with continued statin therapy.Discusse d the beneficial effects of lowering cholesterol in reducing the risk for cerebrovascular and cardiovascular disease. Initiate treatment w/ recheck of cholesterol in 6wks Aug, Patellofemoral pain syndrome of right knee (ICD-10 - M22.2X1) Exercises, ice/heat and NSAIDs as needed. Adjust w/o routine accordingly Aug, Screening PSA (prostate specific antigen) (ICD-10 - Z12.5) Yearly PSA and RHEA [facility] Other [facility] general Narrative - Reported* Type Description Date Medical History Varicose veins of left lower ext remities with pain Medical History Hypercholesterolemia Surgical History Colonoscopy 06/2023 [facility] [employer] Other 08-01-2023 History general Narrative - Reported* Type Description Date Medical History Varicose veins of left lower ext remities with pain Medical History Hypercholesterolemia Surgical History Colonoscopy 06/2023 Hospitalization History see surgical hx [place] [email or web address] Other 06-23-2023 Evaluation note* Encounter Date Diagnosis Assessment Notes Treatment Notes Treatment Clinical Notes Apr, Strain of right knee, subsequent encounter (ICD-10 - S86.911D) Apr, Dysfunction of both eustachian tubes (ICD-10 - H69.93) [employer] Other 06-21-2023 Evaluation note* Encounter Date Diagnosis Assessment Notes Treatment Notes Treatment Clinical Notes Apr, Dysfunction of both eustachian tubes (ICD-10 - H69.93) Flonase NS daily Short course of Prednisone Valsalva maneuver Apr, Strain of right knee, subsequent encounter (ICD-10 - S86.911D) Quad exercises, ice/heat and rest. Continue bike and swimming. Taper down on running Apr, Colon cancer screening (ICD-10 - Z12.11) Refer for colonoscopy [facility] [employer] Other 04-27-2023 Evaluation note* Encounter Date Diagnosis Assessment Notes Treatment Notes Treatment Clinical Notes Feb, Strain of right knee, initial encounter (ICD-10 - S86.911A) Ice, heat and ROM exercises. Begin NSAIDs. IA injection, PT discussed but declined. He will try NSAIDs for next 3-4 wks and decide on any additional treatment He is encouraged to continue w/ bike and aquatic exercises [facility] [employer] Other Evaluation noteNo [facility] [employer] [employer] Other Evaluation noteNo assessment information available [facility] Work Phone: Evaluation note* Diagnosis Onset Date Resolution Status Admit Date Hypercholesterolemia acute Nove mb2023 3:24pm Screening PSA (prostate spec ific antigen) acute September 29, 2 024 3:24pm Wellness examination acute 2023 3:24pm [facility] Work Phone: History and physical note Author Samantha Maciel [facility] June 30, 2023 10:49am Note Date/Time June 30, 2023 10 :49am [facility] [address] [place] [address] Gastroenterology H&P Signed Patient: Brad Paul MR#: [id number] 8 : 1970 Acct:[id number] Age/Sex: 52 / M Adm Date: 3 Loc: Room: Type: [facility] Attending Dr: Samantha Maciel MD Copies to: Jimmy Davies,DO Samantha Maciel MD~ Date of Service: 06/30/2023 HISTORY & PHYSICAL: Patient's history with special attention to the cardiovascular, pulmonary systems and the current problem was reviewed with the patient immediately prior to the procedure. Present medications and doses reviewed in the EMR. Allergies and pertinent laboratory tests were also reviewedat this time in the EMR. The physical examination, as below, was then performed. Indication, assessment and HPI: 52-year-old man here for screening colonoscopy Family history of GI malignancy? No PHYSICAL EXAMINATION Mouth and Pharynx : Moist mucus membranes, normal dentition Cardiac: Regular rate, regular rhythm Pulmonary: Clear to auscultation bilaterally, no wheezing Neurological: Alert and oriented x3, no focal deficits noted Abdomen: Abdomen soft, non-tender REVIEW OF SYSTEMS Constitutional: Denies malaise, fevers Cardiovascular: Denies chest pain, palpitations Respiratory: Denies shortness of breath, wheezing Gastrointestinal: Per HPI Genitourinary: Denies dysuria, polyuria Musculoskeletal: Denies joint swelling, joint stiffness Neurological: Denies numbness, tingling Integumentary: Denies rashes, skin lesions Endocrine: Denies fatigue, weight loss Written informed consent obtained from the patient. Risks (including but not limited to perforation, infection, bloating, bleeding, need for emergent surgeryand loss of life), benefits and alternatives explained and questions answered. The patient verbalized understanding. Based on history patient is an appropriate candidate for the procedure. Samantha Maciel M.D. Documented By: Samantha Maciel MD 06/30/23 104 Signed By: <Electronically signed by Samantha Maciel MD> 06/30/23 1046 [facility] Work Phone: History general Narrative - Reported* Type Description Date Medical History Varicose veins of left lower ext remities with pain Medical History [facility] [employer] Other Hospital Discharge instructions Additional Instructions DISCHARGE INSTRUCTIONS FOR COLONOSCOPY WHAT TO EXPECT: - You may feel full, gassy or cramping after your procedure. In some cases, this may be from a few hours to a day. Walking may help relieve the discomfort. - If you have polyp(s) removed you may note some minor bloody discharge after your first bowel movements. - You should begin to recover from anesthesia within 1 hour of the procedure, however may feel groggy for the next 24 hours. DO's AND DON'Ts: - Call your doctor right away if you have a hard abdomen, severe pain, are passing lots of bright red blood or clots. - Call your doctor if you develop any rashes, hives or difficulty breathing. - Let your doctor know if you have not had a bowel movement by 3 days after your procedure. - If you take 81 mg aspirin for your heart it is safe to resume this medication. - If you take other blood thinner medications your doctor will instruct you when these can safely be resumed. - Do NOT drive for 24 hours. - Do NOT operate machinery such as power tools, lawn mowers, snow blowers, sewing machines, etc. for 24 hours. - Avoid alcoholic beverages and drugs for allergies, nerves, or sleep. - Do NOT stay alone. Do NOT leave your child unattended. - Do NOT make important personal or business decisions or sign any legal documents. - Eat solid foods and drink liquids in smaller amounts than usual until normal appetite returns. If you should experience an upset stomach, liquids high in sugar content (soda, Heraclio-Aid, non-acid juices) are recommended. - You can resume normal activities tomorrow. FOLLOW UP & RECOMMENDATIONS: -Notify the doctor if you have any problems. -Repeat colonoscopy in10 years. -Follow up with PCP. -Office number [phone]. [facility] Work Phone: Reason for referral (narrative)* Reason Referral for screeni ng colonoscopy Diagnosis 1 Colon cancer screeni ng (Z12.11) Referral Organization [facility] Samson richter Referring Provider First Name Jimmy Referring Provider Last Name Samson Referring Provider Specialty Internal Me dicine Referred Organization [facility] Referred Provider Lb Persaud Referred Address [place], [place],[address] Referred Provider Specialty Gastroentero logy Referral Priority Routine General Notes Patient being referr ed for screening colonoscopy. He denies change in appetite or bowel habits. He denies N/V, heartburn or dysphagia. He denies melena or hematochezia. He is a asymptomatic, low risk patient. No family hx of polyps or cancers. [employer] Other Summary Purpose Family History Relationship Condition Age at Onset Recorded Date/T komal Not Specified No pertinent family history Unknown Advance Directives Advance Directive Response Recorded Date/ Time Advance Directives No June 26, 2023 9:37am Advance Directive Response Recorded Date/ Time Advance Directives No June 26, 2023 8:37am Chief Complaint and Reason for Visit Chief Complaint Screening Chief Complaint Admit Date Wellness September 29, 2024 3:24pm Reason for Visit Admit Date Hypercholesterolemia September 29, 2024 3:24pm Screening PSA (prostate specific antigen ) September 29, 2024 3:24pm Wellness examination September 29, 2024 3:24pm Additional Source Comments (unrecognized sect ion and content) No Status Records FoundNo Status Records Found INFORMATION SOURCE (unrecogn ized section and content) DATE CREATED AUTHOR 07/10/2022 [facility] DATE CREATED AUTHOR AUTHOR'S ORGANIZ ATION 08/18/2023 [facility] REASON FOR VISIT (unrecogniz ed section and content) hurt kneeear pluggedrefillMA [place] PPWNo InformationCar[facility] Care Teams (unrecognized sec tion and content) Team Status: Active Member Role Status Dates Jimmy Davies DO Primary Care Provider Active Team Status: Inactive Member Role Status Dates Samantha Maciel MD Attending Provider Active Jimmy Davies DO Primary Care Provider Active Team Status: Inactive Member Role Status Dates Jimmy Davies DO Primary Care Provide r, Attending Provider Active Start: September 29, 2024 End: September 29, 2024 Goals (unrecognized section and content) Goals may be documented in a n alternate section FOR RECORDS PERTAINING TO PATIENTS WHO ARE OR HAVE BEEN ENROLLED IN A CHEMICAL DEPENDENCY/SUBSTANCEABUSE PROGRAM, SOME INFORMATION MAY BE OMITTED. This clinical summary was aggregated from multiple sources. Caution should be exercised in using it in the provision of clinical care. This summary normalizes information from multiple sources, and as a consequence, information in this document may materially change the coding, format and clinical context of patient data. In addition, data may be omitted in some cases. CLINICAL DECISIONS SHOULD BE BASED ON THE PRIMARY CLINICAL RECORDS. [employer] [facility]. provides no warranty or guarantee of the accuracy or completeness of information in this document.
== END 2024-12-14 15:21 | disposition home or self-care (01) ==
LOC: VC 15:02
PROVIDERS: PCP Radiology Diagnostic Radiology; Visit Provider Radiology Diagnostic Radiology
DX: I80.02 Phlebitis and thrombophlebitis of superficial vessels of left lower extremity (principal)
CPT/HCPCS: 93971; G0463

== ENCOUNTER 2024-12-21 14:17 | Outpatient (OUT) | payer OTHER, SELFPAY ==
--- NOTE | 2024-12-21 07:37 | V.VEINS.HP ---
Vital Signs 12/21/24 14:53 BP 110/76 BP Location Right Brachial BP Position Sitting BP Cuff Size Adult BP Source Manual Cuff Respiration 16 Pulse 66 Pulse Source Monitor Pulse Oximetry (%) 98 Oxygen Delivery Method Room Air Varicose Veins Patient in this day for EVLT of Jose Anaya MD personally performed the services described in this documentation, as scribed by Markos Sharp RN in my presence and it is both accurate and complete. Markos Anaya RN, am scribing for, and in the presence of, Dr. Jose Amaro and in the presence of the patient. . thigh: bilateral (symptoms left leg > right leg), knee: bilateral, calf: bilateral, ankle: bilateral and nuñez: bilateral aching and cramping 3 10 years Worsened in recent months: Yes standing and sitting elevating extremities, compression stockings and exercise Reports muscle spasms of leg, limb pain and leg edema History of lower extremity trauma: No Superficial thrombophlebitis: No Family history of varicose veins: yes Has patient had previous lower extremity venous surgery: No Patient has previously received the following treatment(s) for lower extremity varicose veins: Reports none Does patient have a history of : not applicable Has patient had lower extremity venous scan with relux testing: No Support hose used: Yes Problems walking or doing physical activity: Yes How does it affect you: pain interupts patient's sleep and awakens patient at night Do you walk much: Yes Do you stand much: Yes Review of Systems ROS Narrative Jose Anaya MD personally performed the services described in this documentation, as scribed by Markos Sharp RN in my presence and it is both accurate and complete. Markos Anaya RN, am scribing for, and in the presence of, Dr. Jose Amaro and in the presence of the patient. Status of ROS 10 or more systems reviewed and unremarkable except as noted in history and below Cardiovascular Reports: edema Integumentary/Breast Reports: skin pain [facility] Medical History (Updated 12/21/24 @ 08:37 by Markos Sharp) Phlebitis and thrombophlebitis of superficial vessels of right lower extremity ?I80.01 - Phlebitis and thrombophlebitis of superficial vessels of right lower extremity (ICD-10) Superficial thrombophlebitis of left leg ?I80.02 - Phlebitis and thrombophlebitis of superficial vessels of left lower extremity (ICD-10) Hypercholesteremia ?E78.00 - Pure hypercholesterolemia, unspecified (ICD-10) Varicose veins of bilateral lower extremities with pain ?I83.813 - Varicose veins of bilateral lower extremities with pain (ICD-10) Surgical History (Updated 12/21/24 @ 14:51 by Markos Sharp) Status post laser ablation of incompetent vein ?Z98.890 - Other specified postprocedural states (ICD-10) Status post laser ablation of incompetent vein ?Z98.890 - Other specified postprocedural states (ICD-10) H/O hernia repair ?Z98.890 - Other specified postprocedural states (ICD-10) ?Z87.19 - Personal history of other diseases of the digestive system (ICD-10) Family History (Updated 10/28/24 @ 14:32 by Markos Sharp) Other Family history of COPD (chronic obstructive pulmonary disease) Pain due to varicose veins of both lower extremities Social History (Updated 10/28/24 @ 14:32 by Markos Sharp) Within the past year, how often did you have a drink containing alcohol: monthly or less Smoking status: Never smoker Non-prescribed substance use: denies use Meds Home Medications and Allergies Home Medications ?Medication ?Instructions ?Recorded ?Confirmed ?Type atorvastatin 10 mg tablet 10 mg PO DAILY 10/28/24 10/28/24 History Allergies Allergy/AdvReac Type Severity Reaction Status Date / Time No Known Drug Allergies Allergy Verified 10/28/24 14:32 Exam Narrative Exam Narrative: Jose Anaya MD personally performed the services described in this documentation, as scribed by Markos Sharp RN in my presence and it is both accurate and complete. Markos Anaya RN, am scribing for, and in the presence of, Dr. Jose Amaro and in the presence of the patient. Constitutional Documenting provider has reviewed patient's vital signs: yes Common normals: oriented x3 Cardio Peripheral pulses: posterior tibial pulses present and dorsalis pedis pulses present Extremity Common normals: normal capillary refill General: calf tenderness and edema Right lower extremity: lower leg Right lower leg: inspection and palpation Left lower extremity: lower leg Left lower leg: inspection and palpation Neuro Common normals: oriented x3 Assessment and Plan Assessment and Plan (1) Varicose veins of bilateral lower extremities with pain: Plan f/u evaluation with physician along with right leg limited u/s I, Jose Amaro MD personally performed the services described in this documentation, as scribed by Markos Sharp RN in my presence and it is both accurate and complete. IMarkos RN, am scribing for, and in the presence of, Dr. Jose Amaro and in the presence of the patient. Procedures Procedure Instructions Procedures Plan of care: Risks and benefits of the procedure were discussed at length and informed written consent was obtained.? Time-out completed for verification of correct patient, procedure and site.? Staff present during time-out: Markos Sharp RN,? Jose Amaro MD, [facility],RVT. Time Out Time__1446 Patient prepped and procedure performed in usual sterile fashion. Risk of injury related to use of Diode laser and/or laser devices __CR___ ? Serial number of laser used :? [id number] Control panel self test performed, electrical cords in good condition, floor is dry, basin of water available, fire extinguisher in close proximity_CR__ Polycarbonate goggles available and Laser warning signs outside of doors___CR__ Eye protection provided to patient and staff in room_CR___ Use of laser retardant drapes and dull blackened instruments as directed__CR___ Use of nonflammable prep solutions and use of saline soaked sponges to protect tissues as indicated _CR___ Length __21___ cm Laser operated by __Dr. Amaro Physician verbal confirmation laser locked in place__CR__ Laser start time (date and time) __12/21/2024@_1456 Laser stop time(date and time) _12/21/2024@_1459 Ramos _8.0___ Average laser use __1324 Joules Average laser use___165 seconds Pulse continuous ___CR_? Pulse intermittent ___ Amount of Tumescent used _100cc Evaluated patient for signs and symptoms of electrical injury __CR___ ? Skin clear at insertion site __CR___ Patient tolerated procedure well.?Right leg Coban dressing applied to access site.? Applied right thigh high leg compression stocking. Will return on 12/30/2024 for rightt leg limited venous ultrasound and exam. IJose MD personally performed the services described in this documentation, as scribed by Markos Sharp RN in my presence and it is both accurate and complete. I, Markos Sharp RN, am scribing for, and in the presence of, Dr. Jose Amaro and in the presence of the patient.
--- NOTE | 2024-12-21 08:35 | P.DS_ITS ---
Discharge Plan Discharge Disposition: Home, Self-Care Outpatient Diagnostics: VC Facility EST LMTD (Routine) Timeframe: 2 Weeks Facility: [facility] - Location: [facility] Ordered By: Jose Amaro VC EXT Venous RT LMTD (Routine) Timeframe: 2 Weeks Facility: [facility] - Location: Vein Center Ordered By: Jose Amaro Follow Up Appointments: 12/30/2024 Plan of Treatment: f/u evaluation with physician along with right leg limited u/s Patient Instructions: Endovenous Ablation (DC) Print Language: Indonesian Discharge Date/Time: 12/21/24 14:57
--- NOTE | 2024-12-21 14:19 | VEIN_ITS ---
[address] [address] Patient Name: AFSHAN AZAR MRN: [id number] date: 1970 Sex: M Assigned Patient Location: Current Patient Location: Accession/Order Number: [id number] Exam Date: 12/21/2024 14:25 Report Date: 12/21/2024 15:16 At the request of: KINSEY JJ Procedure: VC Endovenous Ablation 1VeinRT EXAMINATION: VC Endovenous Ablation 1VeinRT HISTORY: I83.813 - Varicose veins of bilateral lower extremities w... The risks and benefits of the procedure had been previously discussed, and were rediscussed at length. Informed written consent was obtained. Markos Sharp RN and Carmela Saavedra RDMS, RVT assisted. Time out procedure was performed. The right lower extremity was prepared and draped in the usual sterile fashion to allow knee flexion in the sterile field. Duplex ultrasound probe was draped in a sterile cover, sterile transmission gel was used. Venous mapping was performed with the areas of dilation and large tributaries marked. The total length was 21 cm from the entry mid-distal thigh to 3 cm below the Saphenofemoral junction. The diameter of the right great saphenous vein ranged from 5.6 mm. A 30 gauge needle and 1% buffered lidocaine was used to anesthetize the entry site. A 4 mm incision was made with a scalpel and the saphenous vein was entered percutaneously under direct ultrasound guidance with a micropuncture set, a single stick was successful in gaining access. A micro-guide wire was inserted and the needle removed. A micro-set including a dilator was inserted over the microwire and the needle and dilator were removed. A guide wire was inserted through the micro-set and guided through the saphenous vein to the saphenofemoral junction. The dilator was removed and an introducer sheath was inserted over the wire until the end of the sheath entered the saphenofemoral junction. The dilator and wire were removed and the 600 micron fiber was introduced and placed and positioned so that it extended beyond the sheath and was 3 cm distal to the saphenofemoral or saphenopopliteal junction. Final position of the fiber was determined by ultrasound guidance and duplex imaging. Tumescent anesthetic was delivered by ultrasound guidance. 100 cc of fluid was delivered along the entire course of the saphenous vein. The solution consisted of 1000 cc of normal saline with 40 mL of 1% lidocaine and 20 mL of sodium bicarbonate. A final positioning check was made. The energy source was turned on by means of the foot pedal and the fiber and sheath were withdrawn. The total number of Joules delivered was 1324. The laser was active for 165 seconds under continuous pulse, average laser use of 8 J. Laser start time: 2:56 PM Laser stop time: 2:59 PM Date: 12/21/2024. A duplex ultrasound revealed compressibility and flow at the saphenofemoral junction immediately after the procedure. Hemostasis at the access site was achieved. The skin incision of the saphenous vein was closed with a 4 x 4. A compression stocking was applied. Postop instructions were given. A follow up appointment was recommended and scheduled. The patient tolerated the procedure well. Electronically authenticated by: SAMANTHA LECHUGA Date: 12/21/2024 15:16
--- OUTSIDE RECORDS SUMMARY | 2024-12-21 14:20 | XMS_ITS | CCD ---
Author Organization [facility] CliniSyct Care Team Providers Care Adult Family Home Program Manager Name Role Phone DR JIMMY DAVIES Attending Unavailable SAMSON, DR MANDEL Consulting Unavailable SAMSON, DR MANDEL Admitting Unavailable Jimmy Davies Unavailable Asashannon, Imshannon Unavailable MD Samantha Maciel Attending Provider [phone] DO Jimmy Davies Primary Care Provider Jimmy Davies Primary Care Unavailable AsaadSamantha Attending Unavailable Asaad Imshannon Admitting Unavailable Allergies Allergy Classification Reported Allergen(s) Allergy Type Date of Onset Reaction(s) Facility (1 source) patient allergy list reviewed by nurse or physicia Propensity to adverse reactions 4 Comment:Done [facility] Other Medications Current Medications Medication Drug Class(es) Dates Sig (Normalized) Sig (Original) [id number] 200 actuat albuterol 0.09 mg/actuat metered dose [...] 6 days Dec, Not-Taking polyethylene glycol 3350 169912 mg / potassium chloride 2970 mg / sodium bicarbonate 6740 mg / sodium chloride 5860 mg / sodium sulfate 08983 mg powder for oral solution (3 sources) [...] Results Test Name Value Interpretation Reference Range [facility] CBC AUTO DIFFon 07-04-2022 BASO # 0.0 103/ul Normal 0.0-0.1 [facility] Comment on above: Performed By: #### H FPFCBC #### [facility] [address] [place] [address] Dr. Macho Harrell Basophils/100 WBC (Bld) 0.7 % Normal 0.2-2.0 [facility] Comment on above: Performed By: #### H FPFCBC #### [facility] [address] [address] [address] Macho Harrell EO # 0.1 103/ul Normal 0.0-0.7 [facility] Comment on above: Performed By: #### H FPFCBC #### [facility] [address] [place] [address] Dr. Macho Harrell Eosinophils/100 WBC (Bld) 1.9 % Normal 0.9-7.0 [facility] Comment on above: Performed By: #### H FPFCBC #### [facility] [address] [address] [address] Macho Harrell Erythrocyte distribution width (RBC) [Ratio] 11.7 % Normal 11.0-15.0 [facility] Comment on above: Performed By: #### H FPFCBC #### [facility] [address] [place] [address] Dr. Macho Harrell Hematocrit (Bld) [Volume fraction] 46.1 % Normal 42.0-54.0 [facility] Comment on above: Performed By: #### H FPFCBC #### [facility] [address] [address] [address] Macho Harrell Hemoglobin (Bld) [Mass/Vol] 15.6 g/dL Normal 14.0-18.0 [facility] Comment on above: Performed By: #### H FPFCBC #### [facility] [address] [address] [address] Macho Harrell IG # 0.01 10e3/ul Normal 0.00-0.03 [facility] Comment on above: Performed By: #### H FPFCBC #### [facility] [address] [address] [address] Macho Harrell IG % 0.2 % Normal 0.0-0.5 [facility] Comment on above: Performed By: #### H FPFCBC #### [facility] [address] [place] [address] Dr. Macho Harrell LYMPH # 1.5 103/ul Normal 1.2-3.8 [facility] Comment on above: Performed By: #### H FPFCBC #### [facility] [address] [place] [address] Dr. Macho Harrell Lymphocytes/100 WBC (Bld) 33.7 % Normal 20.5-60.0 [facility] Comment on above: Performed By: #### H FPFCBC #### [facility] [address] [place] [address] Dr. Macho Harrell MCH (RBC) [Entitic mass] 29.8 pg Normal 25.9-34.0 [facility] Comment on above: Performed By: #### H FPFCBC #### [facility] [address] [place] [address] Dr. Macho Harrell MCHC (RBC) [Mass/Vol] 33.8 g/dL Normal 29.9-35.2 [facility] Comment on above: Performed By: #### H FPFCBC #### [facility] [address] [place] [address] Dr. Macho Harrell MCV (RBC) [Entitic vol] 88.1 fL Normal 80.0-94.0 [facility] Comment on above: Performed By: #### H FPFCBC #### [facility] [address] [address] [address] Macho Harrell MONO # 0.4 103/ul Normal 0.3-0.8 [facility] Comment on above: Performed By: #### H FPFCBC #### [facility] [address] [place] [address] Dr. Macho Harrell Monocytes/100 WBC (Bld) 8.1 % Normal 1.7-12.0 [facility] Comment on above: Performed By: #### H FPFCBC #### [facility] [address] [place] [address] Dr. Macho Harrell NEUT # 2.4 103/ul Normal 1.4-6.5 [facility] Comment on above: Performed By: #### H FPFCBC #### [facility] [address] [place] [address] Dr. Macho Harrell Neutrophils/100 WBC (Bld) 55.4 % Normal 43.0-75.0 [facility] Comment on above: Performed By: #### H FPFCBC #### [facility] [address] [place] [address] Dr. Macho Harrell Platelet mean volume (Bld) [Entitic vol] 12.0 fL Normal 9.5-13.5 [facility] Comment on above: Performed By: #### H FPFCBC #### [facility] [address] [place] [address] Dr. Macho Harrell PLT 169 103/ul Normal 150-[address] [facility] Comment on above: Performed By: #### H FPFCBC #### [facility] [address] [place] [address] Dr. Macho Harrell RBC 5.23 106/ul Normal 4.70-6.[address] [facility] Comment on above: Performed By: #### H FPFCBC #### [facility] [address] [place] [address] Dr. Macho Harrell WBC 4.3 103/ul Normal 4.0-11.0 [facility] Comment on above: Performed By: #### H FPFCBC #### [facility] [address] [address] [address] Macho Harrell [employer] PROFILE (MALE)on 07-04-2022 Albumin [Mass/Vol] 3.8 g/dL Normal 3.4-5.0 [facility] Comment on above: Performed By: #### H FPFM #### [facility] [address] [address] [address] Macho Harrell Albumin/Globulin [Mass ratio] 1.2 {ratio} Normal [facility] Comment on above: Performed By: #### H FPFM #### [facility] [address] [place] [address] Dr. Macho Harrell ALP [Catalytic activity/Vol] 91 U/L Normal 46-116 [facility] Comment on above: Performed By: #### H FPFM #### [facility] [address] [place] [address] Dr. Macho Harrell ALT [Catalytic activity/Vol] 23 U/L Normal 16-63 [facility] Comment on above: Performed By: #### H FPFM #### [facility] [address] [place] [address] Dr. Macho Harrell AST [Catalytic activity/Vol] 19 U/L Normal 15-37 [facility] Comment on above: Performed By: #### H FPFM #### [facility] [address] [place] [address] Dr. Macho Harrell Bilirubin [Mass/Vol] 0.6 mg/dL Normal 0.2-1.0 [facility] Comment on above: Performed By: #### H FPFM #### [facility] [address] [place] [address] Dr. Macho Harrell Calcium [Mass/Vol] 8.6 mg/dL Normal 8.5-10.1 [facility] Comment on above: Performed By: #### H FPFM #### [facility] [address] [place] [address] Dr. Macho Harrell Chloride [Moles/Vol] 103 mmol/L Normal 98-107 [facility] Comment on above: Performed By: #### H FPFM #### [facility] [address] [address] [address] Macho Harrell CHOL-HDL RATIO NORM SEE BELOW Normal [facility] Comment on above: Result Comment: 3.3 - 4.4 LOW RISK 4.4 - 7.1 AVERAGE RISK 7.1 - 11.0 MODERATE RISK >11.0 HIGH RISK Performed By: #### H FPFM #### [facility] [address] [address] [address] Macho Harrell Cholesterol [Mass/Vol] 246 mg/dL Critically high <=200 [facility] Comment on above: Performed By: #### H FPFM #### [facility] [address] [address] [address] Macho Harrell Cholesterol in HDL [Mass/Vol] 62 mg/dL Critically high 40-60 [facility] Comment on above: Performed By: #### H FPFM #### [facility] [address] [address] [address] Macho Harrell Cholesterol in LDL [Mass/Vol] 165.8 mg/dL Normal [facility] Comment on above: Performed By: #### H FPFM #### [facility] [address] [address] [address] Macho Harrell Cholesterol.total/C holesterol in HDL [Mass ratio] 4.0 {ratio} Normal [facility] Comment on above: Performed By: #### H FPFM #### [facility] [address] [address] [address] Macho Harrell CO2 [Moles/Vol] 30.5 mmol/L Normal 21.0-32.0 [facility] Comment on above: Performed By: #### H FPFM #### [facility] [address] [address] [address] Macho Harrell Creatinine [Mass/Vol] 0.95 mg/dL Normal 0.70-1.30 [facility] Comment on above: Performed By: #### H FPFM #### [facility] [address] [address] [address] Macho Harrell Globulin (S) [Mass/Vol] 3.2 g/dL Normal [facility] Comment on above: Performed By: #### H FPFM #### [facility] [address] [address] [address] Macho Harrell Glucose [Mass/Vol] 89 mg/dL Normal 74-106 [facility] Comment on above: Performed By: #### H FPFM #### [facility] [address] [address] [address] Macho Harrell HDL NORMAL > or = 60 mg/dl - LO W CARDIOVASCULAR RISK <40 mg/dl - HIGH CARDIOVASCULAR RISK Normal [facility] Comment on above: Performed By: #### H FPFM #### [facility] [address] [address] [address] Macho Harrell LDL CALC NORMAL SEE BELOW Normal [facility] Comment on above: Result Comment: <100 mg/dl OPTIMAL 100 - 129 mg/dl NEAR OR ABOVE OPTIMAL 130 - 159 mg/dl BORDERLINE HIGH 160 - 189 mg/dl HIGH >190 mg/dl VERY HIGH Performed By: #### H FPFM #### [facility] [address] [address] [address] Macho Harrell Potassium [Moles/Vol] 4.3 mmol/L Normal 3.5-5.[address] [facility] Comment on above: Performed By: #### H FPFM #### [facility] [address] [address] [address] Macho Harrell Protein [Mass/Vol] 7.0 g/dL Normal 6.4-8.2 [facility] Comment on above: Performed By: #### H FPFM #### [facility] [address] [address] [address] Macho Harrell Sodium [Moles/Vol] 138 mmol/L Normal 136-145 [facility] Comment on above: Performed By: #### H FPFM #### [facility] [address] [address] [address] Macho Harrell Triglyceride [Mass/Vol] 91 mg/dL Normal <=[address] [facility] Comment on above: Performed By: #### H FPFM #### [facility] [address] [address] [address] Macho Harrell TSH 1.802 uIU/mL Normal 0.358-3.740 [facility] Comment on above: Performed By: #### H FPFM #### [facility] [address] [address] [address] Macho Harrell Urea nitrogen [Mass/Vol] 15.0 mg/dL Normal 7.0-18.0 [facility] Comment on above: Performed By: #### H FPFM #### [facility] [address] [address] [address] Macho Harrell Urea nitrogen/Creatinine [Mass ratio] 15.8 mg/mg Normal [facility] Comment on above: Performed By: #### H FPFM #### [facility] [address] [address] [address] Macho Harrell VLDL CALC 18.2 mg/dL Normal [facility] Comment on above: Performed By: #### H FPFM #### [facility] [address] [address] [address] Macho Harrell Vital Signs Date Time Vital Sign Value Performing Clinician Facility 09-29-2024 16:06-0500 Body height 182.[address] [facility] 09-29-2024 16:06-0500 Body mass index (BMI) [Ratio] 25.1 kg/m2 [facility] 09-29-2024 16:06-0500 Body weight 84.[address] [facility] 09-29-2024 16:06-0500 Diastolic blood pressure 80 mm[Hg] [facility] 09-29-2024 16:06-0500 Heart rate 58 /min [facility] 09-29-2024 16:06-0500 Respiratory rate 12 /min [facility] 09-29-2024 16:06-0500 Systolic blood pressure 120 mm[Hg] [facility] 08-26-2023 15:30-0400 Body height 185.42 cm Jimmy Ball Other [facility] Other 08-26-2023 15:30-0400 Body mass index (BMI) [Ratio] 24.17 kg/m2 Jimmy Ball Other [facility] Other 08-26-2023 15:30-0400 Body weight 83.1 kg Jimmy Ball Other [facility] Other 08-26-2023 15:30-0400 Diastolic blood pressure 88 mm[Hg] Jimmy Ball Other [facility] Other 08-26-2023 15:30-0400 Respiratory rate 12 /min Jimmy Ball Other [facility] Other 08-26-2023 15:30-0400 Systolic blood pressure 136 mm[Hg] Jimmy Ball Other [facility] Other 06-30-2023 11:39-0400 Diastolic blood pressure 80 mm[Hg] DO Jimmy Ball Work Phone: [facility] 06-30-2023 11:39-0400 Heart rate 55 /min DO Jimmy Ball Work Phone: [facility] 06-30-2023 11:39-0400 Respiratory rate 16 /min DO Jimmy Ball Work Phone: [facility] 06-30-2023 11:39-0400 SaO2% (BldA) [Mass fraction] 99 % DO Jimmy Ball Work Phone: [facility] 06-30-2023 11:39-0400 Systolic blood pressure 123 mm[Hg] DO Jimmy Ball Work Phone: [facility] 06-30-2023 08:55-0400 Body height 182.88 cm DO Jimmy Ball Work Phone: [facility] 06-30-2023 08:55-0400 Body temperature 98.1 [degF] DO Jimmy Ball Work Phone: [facility] 06-30-2023 08:55-0400 Body weight 81.64 kg DO Jimmy Ball Work Phone: [facility] 05-07-2023 15:45-0400 Body height 185.42 cm Jimmy Ball Other [facility] Other 05-07-2023 15:45-0400 Body mass index (BMI) [Ratio] 23.82 kg/m2 Jimmy Ball Other [facility] Other 05-07-2023 15:45-0400 Body weight 81.92 kg Jimmy Ball Other [facility] Other 05-07-2023 15:45-0400 Diastolic blood pressure 77 mm[Hg] Jimmy Ball Other [facility] Other 05-07-2023 15:45-0400 Respiratory rate 12 /min Jimmy Ball Other [facility] Other 05-07-2023 15:45-0400 Systolic blood pressure 122 mm[Hg] Jimmy Ball Other [facility] Other 03-13-2023 10:30-0400 Body height 185.42 cm Jimmy Ball Other [facility] Other 03-13-2023 10:30-0400 Body mass index (BMI) [Ratio] 24.06 kg/m2 Jimmy Ball Other [facility] Other 03-13-2023 10:30-0400 Body weight 82.74 kg Jimmy Ball Other [facility] Other 03-13-2023 10:30-0400 Diastolic blood pressure 84 mm[Hg] Jimmy Ball Other [facility] Other 03-13-2023 10:30-0400 Respiratory rate 12 /min Jimmy Davies Other [facility] Other 03-13-2023 10:30-0400 Systolic blood pressure 141 mm[Hg] Jimmy Davies Other [facility] Other Encounters Encounter Date Encounter Type Care Provider Facility Start: 09-29-2024 End: 09-29-2024 ambulatory [facility] Work Phone: Start: 09-29-2024 End: 09-29-2024 Encounter for general adult medical examination without abnormal findings [facility] Start: 09-29-2024 End: 09-29-2024 Patient encounter procedure [facility] Work Phone: Start: 09-28-2024 Patient encounter status [facility] Start: 08-26-2023 End: 08-26-2023 ambulatory Jimmy Davies Other [facility] Other Start: 08-26-2023 Encounter for genera l adult medical examination without abnormal findings Jimmy Davies [facility] Start: 08-26-2023 Periodic preventive med est patient 40-64yrs Jimmy Davies [facility] Start: 06-30-2023 Telephone encounter Jimmy Davies [facility] Start: 06-30-2023 End: 06-30-2023 ambulatory Jimmy Davies Facility:[facility] Start: 06-30-2023 End: 06-30-2023 Admission to same day surgery center DO Jimmy Davies Work Phone: [facility] Work Phone: Start: 06-30-2023 End: 06-30-2023 ambulatory DO Jimmy Davies Work Phone: [facility] Work Phone: Start: 06-02-2023 End: 06-02-2023 ambulatory Imad Asaad Other [facility] [employer] Other Start: 06-02-2023 Telephone encounter Samantha Maciel [facility] Start: 05-09-2023 End: 05-09-2023 ambulatory Jimmy Davies Other [facility] Other Start: 05-09-2023 Telephone encounter Jimmy Davies [facility] Start: 05-07-2023 End: 05-07-2023 ambulatory Jimmy Davies Other [facility] Other Start: 05-07-2023 Office outpatient vi sit 15 minutes Jimmy Davies [facility] Start: 03-13-2023 End: 03-13-2023 ambulatory Jimmy Davies Other [facility] Other Start: 03-13-2023 Office outpatient vi sit 15 minutes Jimmy Davies [facility] Start: 11-04-2022 Adult health examination Jimmy Davies Other [facility] Other Start: 07-04-2022 End: 07-05-[address] JIMMY DAVIES Facility:[facility]1 Procedures Date Procedure Procedure Detail Performing Clinician Start: 06-30-2023 Screening colonoscopy D O Jimmy Davies Work Phone: Start: 07-04-[address] VALENCIA [facility] [place] Comment on above: Performed By: #### H [facility] #### [facility] [address] [place] [address] Dr. Macho Harrell Depression screening Tomás Davies Other Plan of Treatment Date Care Activity Detail Author Start: 06-30-2023 [facility] Patient Education Hemorrhoids (DC) [facility] Work Phone: Immunizations Immunization Date Immunization Notes Care Provider Elham eller 12-03-2013 tetanus and diphther ia toxoids, adsorbed, preservative free, for adult use (5 Lf of tetanus toxoid and 2 Lf of diphtheria toxoid) Jimmy Davies Other [facility] Payers Date Payer Category Payer Self-pay 2023 Unknown [id number] 1961 Self-pay [id number] Unknown [id number] Unknown [id number] Social History Date Type Detail Facility Unknown if ever smoked [facility] [employer] Other Sex Assigned At Sex Assigned At Bir th [facility] [employer] Other Start: 06-30-2023 End: 06-30-2023 Tobacco smoking status NHIS Never smoked tobacco (finding) [facility] Start: 1970 Sex Assigned At Male F [facility] Start: 09-29-2024 Sex Male (finding) 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 Medical History Hypercholesterolemia Surgical History Colonoscopy 06/2023 Hospitalization History see surgical hx [facility] Other 06-23-2023 Evaluation note* Encounter Date Diagnosis Assessment Notes Treatment Notes Treatment Clinical Notes Apr, Strain of right knee, subsequent encounter (ICD-10 - S86.911D) Apr, Dysfunction of both eustachian tubes (ICD-10 - H69.93) [facility] Other 06-21-2023 Evaluation note* Encounter Date Diagnosis [...] screening (ICD-10 - Z12.11) Refer for colonoscopy [facility] [employer] Other 04-27-2023 Evaluation note* Encounter Date Diagnosis Assessment Notes Treatment Notes Treatment Clinical Notes Feb, Strain of right knee, initial encounter (ICD-10 - S86.911A) Ice, heat and ROM exercises. Begin NSAIDs. IA injection, PT discussed but declined. He will try NSAIDs for next 3-4 wks and decide on any additional treatment He is encouraged to continue w/ bike and aquatic exercises [facility] [employer] Other [facility] [employer] Other Evaluation noteNo assessment information available [facility] Work Phone: Evaluation note* Diagnosis Onset Date Resolution Status Admit Date Hypercholesterolemia acute Nove mb2023 3:24pm Screening PSA (prostate spec ific antigen) acute September 29, 2 024 3:24pm Wellness examination acute 2023 3:24pm [facility] Work Phone: History and physical note Author Samantha Maciel [facility] June 30, 2023 10:49am Note Date/Time June 30, 2023 10 :49am [facility] [address] [place] [address] Gastroenterology H&P Signed Patient: Brad Paul MR#: [id number] 8 : 1970 Acct:[id number] Age/Sex: 52 / M Adm Date: 3 Loc: Room: Type: [facility] Attending Dr: Samantha Maciel MD Copies to: [...] <Electronically signed by Samantha Maciel MD> 06/30/23 1044 [facility] Work Phone: History general Narrative - Reported* Type Description Date Medical History 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 -Follow up with PCP. -Office number [phone]. [facility] Work Phone: Reason for referral (narrative)* Reason Referral for screeni ng colonoscopy Diagnosis 1 Colon cancer screeni ng (Z12.11) Referral Organization [facility] Samson richter Referring Provider First Name Jimmy Referring Provider Last Name Samson Referring Provider Specialty Internal Me dicine Referred Organization [facility] Referred Provider Lb Persaud Referred Address [place], [place],[address] Referred Provider Specialty Gastroentero logy Referral Priority Routine General Notes Patient being referr ed for screening colonoscopy. He denies change in appetite or bowel habits. He denies N/V, heartburn or dysphagia. He denies melena or hematochezia. He is a asymptomatic, low risk patient. No family hx of polyps or cancers. [facility] Other Summary Purpose Family History Relationship Condition [...] DATE CREATED AUTHOR AUTHOR'S ORGANIZ ATION 08/18/2023 [facility] REASON FOR VISIT (unrecogniz ed section and content) hurt kneeear pluggedrefillMA [place] PPWNo InformationCarilion [facility]iles [facility] Care Teams (unrecognized sec tion and [...] BE BASED ON THE PRIMARY CLINICAL RECORDS. [facility] [facility]. provides no warranty or guarantee of the accuracy or completeness of information in this document.
[2024-12-21] MEDS: 0.9 % SODIUM CHLORIDE 500 ML, LIDOCAINE HCL 20 ML, SODIUM BICARBONATE 10 MEQ INJ (14:27)
[2024-12-21] MEDS: LIDOCAINE HCL 1% 100 MG/10 ML MDV INJ (14:28)
[2024-12-21 14:53] VITALS: BP 110/76; PULSE 66; O2SAT 98
== END 2024-12-21 14:57 | disposition home or self-care (01) ==
LOC: VC 14:17
PROVIDERS: PCP Radiology Diagnostic Radiology; Visit Provider Radiology Diagnostic Radiology
DX: I83.813 Varicose veins of bilateral lower extremities with pain (principal)
CPT/HCPCS: 36478

== ENCOUNTER 2024-12-30 14:54 | Outpatient (OUT) | payer OTHER, SELFPAY ==
--- NOTE | 2024-12-30 14:21 | VEINCLINIC_ITS ---
Varicose Veins Patient in today for follow up ultrasound of right lower extremity following EVLT of right GSV completed on 12/21/24. Jose Anaya MD personally performed the services described in this documentation, as scribed by Kiarra Medina RDMS in my presence and it is both accurate and complete. Kiarra Anaya RDMS, am scribing for, and in the presence of, Dr. Jose Amaro and in the presence of the patient. thigh: bilateral (symptoms left leg > right leg), knee: bilateral, calf: bila teral, ankle: bilateral and nuñez: bilateral aching and cramping 3 10 years Worsened in recent months: Yes standing and sitting elevating extremities, compression stockings and exercise Reports muscle spasms of leg, limb pain and leg edema History of lower extremity trauma: No Superficial thrombophlebitis: No Family history of varicose veins: yes Has patient had previous lower extremity venous surgery: No Patient has previously received the following treatment(s) for lower extremity varicose veins: Reports none Does patient have a history of : not applicable Has patient had lower extremity venous scan with relux testing: No Support hose used: Yes Problems walking or doing physical activity: Yes How does it affect you: pain interupts patient's sleep and awakens patient at night Do you walk much: Yes Do you stand much: Yes Review of Systems ROS Narrative Jose Anaya MD personally performed the services described in this documentation, as scribed by Kiarra Medina RDMS in my presence and it is both accurate and complete. Kiarra Anaya RDMS, am scribing for, and in the presence of, Dr. Jose Amaro and in the presence of the patient. Status of ROS 10 or more systems reviewed and unremark able except as noted in history and below Cardiovascular Reports: edema Integumentary/Breast Reports: skin pain PFSH [facility] Medical History (Updated 12/21/24 @ 08:37 by Markos Sharp) Phlebitis and thrombophlebitis of superficial vessels of right lower extremity ?I80.01 - Phlebitis and thrombophlebitis of superficial vessels of right lower extremity (ICD-10) Superficial thrombophlebitis of left leg ?I80.02 - Phlebitis and thrombophlebitis of superficial vessels of left lower extremity (ICD-10) Hypercholesteremia ?E78.00 - Pure hypercholesterolemia, unspecified (ICD-10) Varicose veins of bilateral lower extremities with pain ?I83.813 - Varicose veins of bilateral lower extremities with pain (ICD-10) Surgical History (Updated 12/21/24 @ 14:51 by Markos Sharp) Status post laser ablation of incompetent vein ?Z98.890 - Other specified postprocedural states (ICD-10) Status post laser ablation of incompetent vein ?Z98.890 - Other specified postprocedural states (ICD-10) H/O hernia repair ?Z98.890 - Other specified postprocedural states (ICD-10) ?Z87.19 - Personal history of other diseases of the digestive system (ICD-10) Family History (Updated 10/28/24 @ 14:32 by Markos Sharp) Other Family history of COPD (chronic obstructive pulmonary disease) Pain due to varicose veins of both lower extremities Social History (Updated 10/28/24 @ 14:32 by Markos Sharp) Within the past year, how often did you have a drink containing alcohol: monthly or less Smoking status: Never smoker Non-prescribed substance use: denies use Meds Home Medications and Allergies Home Medications ?Medication ?Instructions ?Recorded ?Confirmed ?Type atorvastatin 10 mg tablet 10 mg PO DAILY 10/28/24 10/28/24 History Allergies Allergy/AdvReac Type Severity Reaction Status Date / Time No Known Drug Allergies Allergy Verified 10/28/24 14:32 Exam Narrative Exam Narrative: Jose Anaya MD personally performed the services described in this documentation, as scribed by Kiarra Medina RDMS in my presence and it is both accurate and complete. Kiarra Anaya RDMS, am scribing for, and in the presence of, Dr. Jose Amaro and in the presence of the patient. Constitutional Documenting provider has reviewed patient's vital signs: yes Common normals: oriented x3 Cardio Peripheral pulses: posterior tibial pulses present and dorsalis pedis pulses present Extremity Common normals: normal capillary refill General: calf tenderness and edema Right lower extremity: lower leg Right lower leg: inspection and palpation Left lower extremity: lower leg Left lower leg: inspection and palpation Neuro Common normals: oriented x3 Results Imaging Venous US: Radiologist's impression: Heat induced thrombus in right GSV 1.8 cm from SFJ and extends to distal thigh. Jose Anaya MD personally performed the services described in this do cumentation, as scribed by Kiarra Medina RDMS in my presence and it is both accurate and complete. IKiarra RDMS, am scribing for, and in the presence of, Dr. Jose Amaro and in the presence of the patient. Assessment and Plan Assessment and Plan (1) Phlebitis and thrombophlebitis of superficial vessels of right lower extremity: Plan Plan is for patient to return for Varithena/microfoam of left leg. Jose Anaya MD personally performed the services described in this documentation, as scribed by Kiarra Medina RDMS in my presence and it is both accurate and complete. IKiarra RDMS, am scribing for, and in the presence of, Dr. Jose Amaro and in the presence of the patient.
--- NOTE | 2024-12-30 14:55 | VEIN_ITS ---
Patient Name: AFSHAN AZAR MR#: [id number] : 1970 Exam Date: 12/30/2024 Ordering Doctor: DR SAMANTHA LECHUGA M.D. RADIOLOGY REPORT PROCEDURE: [facility] EST [facility] - OFFICE VISIT FOLLOW UP COMPARISON: [facility], 12/14/2024. PROGRESS NOTES: The patient reports improvement in leg symptoms. There has been interval reduction in varicosities. The patient has followed our recommendations to walk 20-30 minutes once or twice per day since the procedure. Physical exam demonstrates decrease in varicosities of the leg. Persistent superficial varicosities are identified along the legs bilaterally. Review of the ultrasound performed the same day demonstrates occlusive thrombus extending throughout the treated vein(s), see separate report, consistent with a successful ablation. No thrombus extending into or beyond the saphenofemoral junction. The patient expressed a desire to proceed with treatment of remaining incompetent varicosities. The patient was informed that treatment was a process and would require several procedures/sessions. VEIN/[facility] EST TD IMPRESSION: 1. Successful ablation of the right great saphenous vein(s). 2. Persistent incompetent varicose veins and lower extremity symptoms. PLAN: 1. Microfoam chemical ablation of bilateral leg incompetent branch saphenous varicosities. Nurse notes, history and physical were reviewed and confirmed, see attached forms. The nurse was present throughout the physical exam and consultation Dictated by: Samantha Lechuga M.D. on 12/31/2024 at 09:11 Approved by: Samantha Lechuga M.D. on 12/31/2024 at 09:13
--- NOTE | 2024-12-30 14:55 | VEIN_ITS ---
Patient Name: AFSHAN AZAR MR#: [id number] : 1970 Exam Date: 12/30/2024 Ordering Doctor: DR SAMANTHA AMARO M.D. RADIOLOGY REPORT PROCEDURE: VC EXT VENOUS RT LMTD COMPARISON: None. INDICATIONS: I80.01 - Phlebitis and thrombophlebitis of superficial veins right leg TECHNIQUE: Lower extremity hubbard scale and Duplex Doppler evaluation of the deep venous system from the inguinal ligament through the calf veins. FINDINGS: REGION: Right lower extremity. THROMBI: Negative for DVT. Heat induced thrombus in right GSV 1.9 cm from SFJ and extends to distal thigh. COMPRESSIBILITY: Non-compressible segments corresponding to thrombus FLOW: Areas of no flow corresponding to thrombus OTHER: CONCLUSION: 1. Successful post ablation occlusion of right great saphenous vein. Dictated by: Samantha Amaro M.D. on 12/31/2024 at 09:11 Approved by: Samantha Amaro M.D. on 12/31/2024 at 09:11
--- OUTSIDE RECORDS SUMMARY | 2024-12-30 15:12 | XMS_ITS | CCD ---
Author Organization [facility] Care Team Providers Care Supervisor Facepiece Line Name Role Phone DR JIMMY DAVIES Attending Unavailable SAMSON, DR MANDEL Consulting Unavailable SAMSON, DR MANDEL Admitting Unavailable Jimmy Davies Unavailable Asashannon, Imshannon Unavailable MD Samantha Maciel Attending Provider DO Jimmy Davies Primary Care Provider Jimmy Davies Primary Care Unavailable AsaadSamantha Attending Unavailable Asaad Imshannon Admitting Unavailable Allergies Allergy Classification Reported Allergen(s) Allergy Type Date of Onset Reaction(s) Facility (1 source) patient allergy list reviewed by nurse or physicia Propensity to adverse reactions 4 Comment:Done [facility] Other Medications Current Medications Medication Drug Class(es) Dates Sig (Normalized) Sig (Original) [id number] 200 actuat albuterol 0.09 mg/actuat metered dose [...] 6 days Dec, Not-Taking polyethylene glycol 3350 [id number] mg / potassium chloride 2970 mg / sodium bicarbonate 6740 mg / sodium chloride 5860 mg / sodium sulfate 46139 mg powder for oral solution (3 sources) [...] Results Test Name Value Interpretation Reference Range [facility] CBC AUTO DIFFon 07-04-2022 BASO # 0.0 103/ul Normal 0.0-0.1 [facility] Comment on above: Performed By: #### H FPFCBC #### [facility] [address] [place] [address] Dr. Macho Harrell Basophils/100 WBC (Bld) 0.7 % Normal 0.2-2.0 [facility] Comment on above: Performed By: #### H FPFCBC #### [facility] [address] [address] [address] Macho Harrell EO # 0.1 103/ul Normal 0.0-0.7 [facility] Comment on above: Performed By: #### H FPFCBC #### [facility] [address] [place] [address] Dr. Macho Harrell Eosinophils/100 WBC (Bld) 1.9 % Normal 0.9-7.0 [facility] Comment on above: Performed By: #### H FPFCBC #### [facility] [address] [address] [address] Macho Harrell Erythrocyte distribution width (RBC) [Ratio] 11.7 % Normal 11.0-15.0 [facility] Comment on above: Performed By: #### H FPFCBC #### [facility] [address] [place] [address] Dr. Macho Harrell Hematocrit (Bld) [Volume fraction] 46.1 % Normal 42.0-54.0 [facility] Comment on above: Performed By: #### H FPFCBC #### [facility] [address] [address] [address] Macho Harrell Hemoglobin (Bld) [Mass/Vol] 15.6 g/dL Normal 14.0-18.0 [facility] Comment on above: Performed By: #### H FPFCBC #### [facility] [address] [address] [address] Macho Harrell IG # 0.01 10e3/ul Normal 0.00-0.03 [facility] Comment on above: Performed By: #### H FPFCBC #### [facility] [address] [address] [address] Macho Harrell IG % 0.2 % Normal 0.0-0.5 [facility] Comment on above: Performed By: #### H FPFCBC #### [facility] [address] [place] [address] Dr. Macho Harrell LYMPH # 1.5 103/ul Normal 1.2-3.8 [facility] Comment on above: Performed By: #### H FPFCBC #### [facility] [address] [place] [address] Dr. Macho Harrell Lymphocytes/100 WBC (Bld) 33.7 % Normal 20.5-60.0 [facility] Comment on above: Performed By: #### H FPFCBC #### [facility] [address] [place] [address] Dr. Macho Harrell MCH (RBC) [Entitic mass] 29.8 pg Normal 25.9-34.0 [facility] Comment on above: Performed By: #### H FPFCBC #### [facility] [address] [place] [address] Dr. Macho Harrell MCHC (RBC) [Mass/Vol] 33.8 g/dL Normal 29.9-35.2 [facility] Comment on above: Performed By: #### H FPFCBC #### [facility] [address] [place] [address] Dr. Macho Harrell MCV (RBC) [Entitic vol] 88.1 fL Normal 80.0-94.0 [facility] Comment on above: Performed By: #### H FPFCBC #### [facility] [address] [address] [address] Macho Harrell MONO # 0.4 103/ul Normal 0.3-0.8 [facility] Comment on above: Performed By: #### H FPFCBC #### [facility] [address] [place] [address] Dr. Macho Harrell Monocytes/100 WBC (Bld) 8.1 % Normal 1.7-12.0 [facility] Comment on above: Performed By: #### H FPFCBC #### [facility] [address] [place] [address] Dr. Macho Harrell NEUT # 2.4 103/ul Normal 1.4-6.5 [facility] Comment on above: Performed By: #### H FPFCBC #### [facility] [address] [place] [address] Dr. Macho Harrell Neutrophils/100 WBC (Bld) 55.4 % Normal 43.0-75.0 [facility] Comment on above: Performed By: #### H FPFCBC #### [facility] [address] [place] [address] Dr. Macho Harrell Platelet mean volume (Bld) [Entitic vol] 12.0 fL Normal 9.5-13.5 [facility] Comment on above: Performed By: #### H FPFCBC #### [facility] [address] [place] [address] Dr. Macho Harrell PLT 169 103/ul Normal 150-450 [facility] Comment on above: Performed By: #### H FPFCBC #### [facility] [address] [place] [address] Dr. Macho Harrell RBC 5.23 106/ul Normal 4.70-6.10 [facility] Comment on above: Performed By: #### H FPFCBC #### [facility] [address] [place] [address] Dr. Macho Harrell WBC 4.3 103/ul Normal 4.0-11.0 [facility] Comment on above: Performed By: #### H FPFCBC #### [facility] [address] [address] [address] Macho Harrell HEALTH[employer] PROFILE (MALE)on 07-04-2022 Albumin [Mass/Vol] 3.8 g/dL Normal 3.4-5.0 [facility] Comment on above: Performed By: #### H FPFM #### [facility] [address] [address] [address] Macho Harrell Albumin/Globulin [Mass ratio] 1.2 {ratio} Normal [facility] Comment on above: Performed By: #### H FPFM #### [facility] [address] [place] [address] Dr. Macho Harrell ALP [Catalytic activity/Vol] 91 U/L Normal 46-116 [facility] Comment on above: Performed By: #### H FPFM #### [facility] [address] [place] [address] Dr. Macho Harrell ALT [Catalytic activity/Vol] 23 U/L Normal 16-63 [facility] Comment on above: Performed By: #### H FPFM #### [facility] [address] [place] [address] Dr. Macho Harrell AST [Catalytic activity/Vol] 19 U/L Normal 15-37 [facility] Comment on above: Performed By: #### H FPFM #### [facility] [address] [place] [address] Dr. Macho Harrell Bilirubin [Mass/Vol] 0.6 mg/dL Normal 0.2-1.0 [facility] Comment on above: Performed By: #### H FPFM #### [facility] [address] [place] [address] Dr. Macho Harrell Calcium [Mass/Vol] 8.6 mg/dL Normal 8.5-10.1 [facility] Comment on above: Performed By: #### H FPFM #### [facility] [address] [place] [address] Dr. Macho Harrell Chloride [Moles/Vol] 103 mmol/L Normal 98-107 [facility] Comment on above: Performed By: #### H FPFM #### [facility] [address] [address] [address] aMcho Harrell CHOL-HDL RATIO NORM SEE BELOW Normal [facility] Comment on above: Result Comment: 3.3 - 4.4 LOW RISK 4.4 - 7.1 AVERAGE RISK 7.1 - 11.0 MODERATE RISK >11.0 HIGH RISK Performed By: #### H FPFM #### [facility] [address] [address] [address] Macho Harrell Cholesterol [Mass/Vol] 246 mg/dL Critically high <=200 [facility] Comment on above: Performed By: #### H FPFM #### [facility] [address] [address] [address] Macho Harrell Cholesterol in HDL [Mass/Vol] 62 mg/dL Critically high 40-60 [facility] Comment on above: Performed By: #### H FPFM #### [facility] [address] [address] [address] Macho Harrell Cholesterol in LDL [Mass/Vol] 165.8 mg/dL Normal [facility] Comment on above: Performed By: #### H FPFM #### [facility] [address] [address] [address] Macho Harrell Cholesterol.total/C holesterol in HDL [Mass ratio] 4.0 {ratio} Normal [facility] Comment on above: Performed By: #### H FPFM #### [facility] [address] [address] [address] Macho Harrell CO2 [Moles/Vol] 30.5 mmol/L Normal 21.0-32.0 [facility] Comment on above: Performed By: #### H FPFM #### [facility] [address] [address] [address] Macho Harrell Creatinine [Mass/Vol] 0.95 mg/dL Normal 0.70-1.30 [facility] Comment on above: Performed By: #### H FPFM #### [facility] [address] [address] [address] Macho Harrell Globulin (S) [Mass/Vol] 3.2 g/dL Normal [facility] Comment on above: Performed By: #### H FPFM #### [facility] [address] [address] [address] Macho Harrell Glucose [Mass/Vol] 89 mg/dL Normal 74-106 [facility] Comment on above: Performed By: #### H FPFM #### [facility] [address] [address] [address] Macho Harrell HDL NORMAL > or = 60 mg/dl - LO W CARDIOVASCULAR RISK <40 mg/dl - HIGH CARDIOVASCULAR RISK Normal [facility] Comment on above: Performed By: #### H FPFM #### [facility] [address] [address] [address] Macho Harrell LDL CALC NORMAL SEE BELOW Normal [facility] Comment on above: Result Comment: <100 mg/dl OPTIMAL 100 - 129 mg/dl NEAR OR ABOVE OPTIMAL 130 - 159 mg/dl BORDERLINE HIGH 160 - 189 mg/dl HIGH >190 mg/dl VERY HIGH Performed By: #### H FPFM #### [facility] [address] [address] [address] Macho Harrell Potassium [Moles/Vol] 4.3 mmol/L Normal 3.5-5.1 [facility] Comment on above: Performed By: #### H FPFM #### [facility] [address] [address] [address] Macho Harrell Protein [Mass/Vol] 7.0 g/dL Normal 6.4-8.2 [facility] Comment on above: Performed By: #### H FPFM #### [facility] [address] [address] [address] Macho Harrell Sodium [Moles/Vol] 138 mmol/L Normal 136-145 [facility] Comment on above: Performed By: #### H FPFM #### [facility] [address] [address] [address] Macho Harrell Triglyceride [Mass/Vol] 91 mg/dL Normal <=150 [facility] Comment on above: Performed By: #### H FPFM #### [facility] [address] [address] [address] Macho Harrell TSH 1.802 uIU/mL Normal 0.358-3.740 [facility] Comment on above: Performed By: #### H FPFM #### [facility] [address] [address] [address] Macho Harrell Urea nitrogen [Mass/Vol] 15.0 mg/dL Normal 7.0-18.0 [facility] Comment on above: Performed By: #### H FPFM #### [facility] [address] [address] [address] Macho Harrell Urea nitrogen/Creatinine [Mass ratio] 15.8 mg/mg Normal [facility] Comment on above: Performed By: #### H FPFM #### [facility] [address] [address] [address] Macho Harrell VLDL CALC 18.2 mg/dL Normal [facility] Comment on above: Performed By: #### H FPFM #### [facility] [address] [address] [address] Macho Harrell Vital Signs Date Time Vital Sign Value Performing Clinician Facility 09-29-2024 16:06-0500 Body height 182.88 cm [facility] 09-29-2024 16:06-0500 Body mass index (BMI) [Ratio] 25.1 kg/m2 [facility] 09-29-2024 16:06-0500 Body weight 84.02 kg [facility] 09-29-2024 16:06-0500 Diastolic blood pressure 80 mm[Hg] [facility] 09-29-2024 16:06-0500 Heart rate 58 /min [facility] 09-29-2024 16:06-0500 Respiratory rate 12 /min [facility] 09-29-2024 16:06-0500 Systolic blood pressure 120 mm[Hg] [facility] 08-26-2023 15:30-0400 Body height 185.42 cm Jimmy Ball Other [facility] Other 08-26-2023 15:30-0400 Body mass index (BMI) [Ratio] 24.17 kg/m2 Jimmy Ball Other [facility] Other 08-26-2023 15:30-0400 Body weight 83.1 kg Jimmy Ball Other [facility] Other 08-26-2023 15:30-0400 Diastolic blood pressure 88 mm[Hg] Jimmy Ball Other [facility] Other 08-26-2023 15:30-0400 Respiratory rate 12 /min Jimmy Ball Other [place] [facility] Other 08-26-2023 15:30-0400 Systolic blood pressure 136 mm[Hg] Jimmy Ball Other [facility] Other 06-30-2023 11:39-0400 Diastolic blood pressure 80 mm[Hg] DO Jimmy Ball Work Phone: [facility] 06-30-2023 11:39-0400 Heart rate 55 /min DO Jimmy Ball Work Phone: [facility] 06-30-2023 11:39-0400 Respiratory rate 16 /min DO Jimmy Ball Work Phone: [facility] 06-30-2023 11:39-0400 SaO2% (BldA) [Mass fraction] 99 % DO Jimmy Ball Work Phone: [facility] 06-30-2023 11:39-0400 Systolic blood pressure 123 mm[Hg] DO Jimmy Ball Work Phone: [facility] 06-30-2023 08:55-0400 Body height 182.88 cm DO Jimmy Ball Work Phone: [facility] 06-30-2023 08:55-0400 Body temperature 98.1 [degF] DO Jimmy Ball Work Phone: [facility] 06-30-2023 08:55-0400 Body weight 81.64 kg DO Jimmy Ball Work Phone: [facility] 05-07-2023 15:45-0400 Body height 185.42 cm Jimmy Ball Other [facility] Other 05-07-2023 15:45-0400 Body mass index (BMI) [Ratio] 23.82 kg/m2 Jimmy Ball Other [facility] Other 05-07-2023 15:45-0400 Body weight 81.92 kg Jimmy Ball Other [facility] Other 05-07-2023 15:45-0400 Diastolic blood pressure 77 mm[Hg] Jimmy Ball Other [facility] Other 05-07-2023 15:45-0400 Respiratory rate 12 /min Jimmy Ball Other [facility] Other 05-07-2023 15:45-0400 Systolic blood pressure 122 mm[Hg] Jimmy Ball Other [facility] Other 03-13-2023 10:30-0400 Body height 185.42 cm Jimmy Ball Other [facility] Other 03-13-2023 10:30-0400 Body mass index (BMI) [Ratio] 24.06 kg/m2 Jimmy Ball Other [facility] Other 03-13-2023 10:30-0400 Body weight 82.74 kg Jimmy Ball Other [facility] Other 03-13-2023 10:30-0400 Diastolic blood pressure 84 mm[Hg] Jimmy Ball Other [facility] Other 03-13-2023 10:30-0400 Respiratory rate 12 /min Jimmy Davies Other [facility] Other 03-13-2023 10:30-0400 Systolic blood pressure 141 mm[Hg] Jimmy Davies Other [facility] Other Encounters Encounter Date Encounter Type Care Provider Facility Start: 09-29-2024 End: 09-29-2024 ambulatory [facility] Work Phone: Start: 09-29-2024 End: 09-29-2024 Encounter for general adult medical examination without abnormal findings [facility] Start: 09-29-2024 End: 09-29-2024 Patient encounter procedure [facility] Work Phone: Start: 09-28-2024 Patient encounter status [facility] Start: 08-26-2023 End: 08-26-2023 ambulatory Jimmy Davies Other [facility] Other Start: 08-26-2023 Encounter for genera l adult medical examination without abnormal findings Jimmy Davies [facility] Start: 08-26-2023 Periodic preventive med est patient 40-64yrs Jimmy Davies [facility] Start: 06-30-2023 Telephone encounter Jimmy Davies [facility] Start: 06-30-2023 End: 06-30-2023 ambulatory Jimmy Davies Facility:[facility] Start: 06-30-2023 End: 06-30-2023 Admission to same day surgery center DO Jimmy Davies Work Phone: [facility] Work Phone: Start: 06-30-2023 End: 06-30-2023 ambulatory DO Jimmy Davies Work Phone: [facility] Work Phone: Start: 06-02-2023 End: 06-02-2023 ambulatory Imad Asaad Other [facility] Other Start: 06-02-2023 Telephone encounter Samantha Maciel [facility] [employer] Start: 05-09-2023 End: 05-09-2023 ambulatory Jimmy Davies Other [facility] Other Start: 05-09-2023 Telephone encounter Jimmy Davies FP [facility] Start: 05-07-2023 End: 05-07-2023 ambulatory Jimmy Davies Other [facility] Other Start: 05-07-2023 Office outpatient vi sit 15 minutes Jimmy Davies [facility] Start: 03-13-2023 End: 03-13-2023 ambulatory Jimmy Davies Other [facility] Other Start: 03-13-2023 Office outpatient vi sit 15 minutes Jimmy Davies [facility] Start: 11-04-2022 Adult health examination Jimmy Davies Other [facility] Other Start: 07-04-2022 End: 07-05-[address] JIMMY DAVIES Facility:[facility]1 Procedures Date Procedure Procedure Detail Performing Clinician Start: 06-30-2023 Screening colonoscopy D O Jimmy Davies Work Phone: Start: 07-04-[address] VALENCIA IN [place] Comment on above: Performed By: #### H [facility] #### [facility] [address] [place] [address] Dr. Macho Harrell Depression screening Tomás Davies Other Plan of Treatment Date Care Activity Detail Author Start: 06-30-2023 [facility] Patient Education Hemorrhoids (DC) [facility] Work Phone: Immunizations Immunization Date Immunization Notes Care Provider Elham eller 12-03-2013 tetanus and diphther ia toxoids, adsorbed, preservative free, for adult use (5 Lf of tetanus toxoid and 2 Lf of diphtheria toxoid) Jimmy Davies Other [facility] Payers Date Payer Category Payer Self-pay 2023 Unknown [id number] 1961 Self-pay [id number] Unknown [id number] Unknown [id number] Social History Date Type Detail Facility Unknown if ever smoked [facility] Other Sex Assigned At Sex Assigned At Bir th [facility] Other Start: 06-30-2023 End: 06-30-2023 Tobacco smoking status NHIS Never smoked tobacco (finding) [facility] Start: 1970 Sex Assigned At Male F 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 Medical History Hypercholesterolemia Surgical History Colonoscopy 06/2023 Hospitalization History see surgical hx [place] [facility] Other 06-23-2023 Evaluation note* Encounter Date Diagnosis Assessment Notes Treatment Notes Treatment Clinical Notes Apr, Strain of right knee, subsequent encounter (ICD-10 - S86.911D) Apr, Dysfunction of both eustachian tubes (ICD-10 - H69.93) [facility] Other 06-21-2023 Evaluation note* Encounter Date Diagnosis [...] screening (ICD-10 - Z12.11) Refer for colonoscopy [facility] Other 04-27-2023 Evaluation note* Encounter Date Diagnosis Assessment Notes Treatment Notes Treatment Clinical Notes Feb, Strain of right knee, initial encounter (ICD-10 - S86.911A) Ice, heat and ROM exercises. Begin NSAIDs. IA injection, PT discussed but declined. He will try NSAIDs for next 3-4 wks and decide on any additional treatment He is encouraged to continue w/ bike and aquatic exercises [facility] Other [facility] Other Evaluation noteNo assessment information available [facility] Work Phone: Evaluation note* Diagnosis Onset Date Resolution Status Admit Date Hypercholesterolemia acute Nove mb2023 3:24pm Screening PSA (prostate spec ific antigen) acute September 29, 2 024 3:24pm Wellness examination acute 2023 3:24pm [facility] Work Phone: History and physical note Author Samantha Maciel [facility] June 30, 2023 10:49am Note Date/Time June 30, 2023 10 :49am [facility] [address] [place] [address] Gastroenterology H&P Signed Patient: Brad Paul MR#: [id number] 8 : 1970 Acct:[id number] Age/Sex: 52 / M Adm Date: 3 Loc: Room: Type: [facility] Attending Dr: Samantha Maciel MD Copies to: [...] <Electronically signed by Samantha Maciel MD> 06/30/23 1048 [facility] Work Phone: History general Narrative - Reported* Type Description Date Medical History 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 -Follow up with PCP. -Office number [phone]. [facility] Work Phone: Reason for referral (narrative)* Reason Referral for screeni ng colonoscopy Diagnosis 1 Colon cancer screeni ng (Z12.11) Referral Organization [facility] Samson richter Referring Provider First Name Jimmy Referring Provider Last Name Samson Referring Provider Specialty Internal Me dicine Referred Organization [facility] Referred Provider Lb Persaud Referred Address [place], [place],[address] Referred Provider Specialty Gastroentero logy Referral Priority Routine General Notes Patient being referr ed for screening colonoscopy. He denies change in appetite or bowel habits. He denies N/V, heartburn or dysphagia. He denies melena or hematochezia. He is a asymptomatic, low risk patient. No family hx of polyps or cancers. [facility] Other Summary Purpose Family History Relationship Condition [...] DATE CREATED AUTHOR AUTHOR'S ORGANIZ ATION 08/18/2023 [facility] REASON FOR VISIT (unrecogniz ed section and content) hurt kneeear pluggedrefillMA [place] PPWNo InformationCarilion [facility] Care Teams (unrecognized sec tion [...] BE BASED ON THE PRIMARY CLINICAL RECORDS. [employer] [facility]. provides no warranty or guarantee of the accuracy or completeness of information in this document.
--- NOTE | 2024-12-30 15:51 | P.DS_ITS ---
Discharge Plan Discharge Disposition: Home, Self-Care Plan of Treatment: Varithena/micofoam of left leg Print Language: Armenian Discharge Date/Time: 12/30/24 15:51
== END 2024-12-30 15:51 | disposition home or self-care (01) ==
PROVIDERS: PCP Radiology Diagnostic Radiology; Visit Provider Radiology Diagnostic Radiology
DX: I80.01 Phlebitis and thrombophlebitis of superficial vessels of right lower extremity (principal)
CPT/HCPCS: 93971; G0463